=== PATIENT | female | born 1945 | race Caucasian/White ===

== ENCOUNTER → 2016-06-09 | Outpatient (REF) | payer MEDICARE, OTHER ==
[~2016-06-09] MED LIST: /FENT25PA TD; ACET65TA; ACET65TA OR; BONIVA; CALCCHW12; COUM10TA; DARV100T; DICLOFENAC PO; FIBER CAP PO; FLON0.05; GELATIN PO; GLUC850T OR; HYZAAR 100/25; MILKSUS OR; MUCINEX PO; MULTIVIT PO; NASAL SPRAY; OMEGA FISH OIL; PERC5TAB8; PERC5TAB8 OR; Pradaxa PO; RED YEAST RICE; SIMV40TA2 OR; SING10TA31 OR; ZEBE5TAB
== END ==
LOC: M LAB REF 16:50
PROVIDERS: ATTEND Physician Assistant Medical
DX: J02.9 Acute pharyngitis, unspecified (principal)

== ENCOUNTER → 2016-06-12 | Outpatient (REF) | payer MEDICARE, OTHER ==
[2016-06-12 13:50] LABS: ALBUMIN 3.6 GM/DL (3.2-5.2); ALBUMIN/GLOBULIN RATIO 1.2 (1.00-1.93); BILIRUBIN,TOTAL 0.7 MG/DL (0.2-1.0); CALCIUM LEVEL 8.8 MG/DL (8.8-10.2); CREATININE FOR GFR 1.34 MG/DL (0.55-1.02); GLOMERULAR FILTRATION RATE 41.4 (>39); POTASSIUM SERUM 3.9 MEQ/L (3.5-5.1); TOTAL PROTEIN 6.6 GM/DL (6.4-8.2)
== END ==
LOC: M LABDRAW1 11:43
PROVIDERS: ATTEND Family Medicine
DX: E11.65 Type 2 diabetes mellitus with hyperglycemia (principal)

== ENCOUNTER → 2016-10-01 | Outpatient (REF) | payer MEDICARE, OTHER ==
[2016-10-01 12:30] LABS: BASO % 0.5 % (0.0-1.0); EOS # 0.1 K/mm3 (0.0-0.50); EOS % 1.4 % (0.0-3.0); LARGE UNSTAINED CELL # 0.1 K/mm3 (0.0-0.4); LYMPH # 0.9 K/mm3 (1.5-4.5); LYMPH % 17.6 % (24.0-44.0); MEAN CORPUSCULAR HEMOGLOBIN 29.7 pg (27.0-33.0); MEAN CORPUSCULAR VOLUME 89.9 fl (80.0-96.0); MONO # 0.4 K/mm3 (0.0-0.8); MONO % 9.7 % (0.0-5.0); NEUTROPHILS # 3.1 K/mm3 (1.8-7.7); NEUTROPHILS % 68.8 % (36.0-66.0); PLATELET COUNT, AUTOMATED 179 k/mm3 (150-450); RED CELL DISTRIBUTION WIDTH 13.7 % (11.5-14.5); WHITE BLOOD COUNT 4.5 K/mm3 (4.0-10.0)
[2016-10-01 12:54] LABS: ALBUMIN 3.4 GM/DL (3.2-5.2); ALBUMIN/GLOBULIN RATIO 1.21 (1.00-1.93); BILIRUBIN,TOTAL 0.5 MG/DL (0.2-1.0); CALCIUM LEVEL 8.6 MG/DL (8.8-10.2); CREATININE FOR GFR 2.14 MG/DL (0.55-1.02); FREE T4 1.39 NG/DL (0.76-1.46); TOTAL PROTEIN 6.2 GM/DL (6.4-8.2)
== END ==
LOC: M LABDRAW1 11:24
PROVIDERS: ATTEND Family Medicine
DX: E11.65 Type 2 diabetes mellitus with hyperglycemia (principal); E03.9 Hypothyroidism, unspecified

== ENCOUNTER → 2016-10-09 | Outpatient (REF) | payer MEDICARE, OTHER ==
[2016-10-09 11:44] LABS: CALCIUM LEVEL 9.5 MG/DL (8.8-10.2); CREATININE FOR GFR 1.22 MG/DL (0.55-1.02); POTASSIUM SERUM 4.7 MEQ/L (3.5-5.1)
== END ==
LOC: M LABDRAW1 11:00
PROVIDERS: ATTEND Family Medicine
DX: R94.4 Abnormal results of kidney function studies (principal); E11.65 Type 2 diabetes mellitus with hyperglycemia

== ENCOUNTER → 2017-03-14 | Outpatient (REF) | payer MEDICARE, OTHER ==
[2017-03-14 12:36] LABS: ALBUMIN 3.8 GM/DL (3.2-5.2); ALBUMIN/GLOBULIN RATIO 1.52 (1.00-1.93); BILIRUBIN,TOTAL 0.9 MG/DL (0.2-1.0); CALCIUM LEVEL 9.6 MG/DL (8.8-10.2); CREATININE FOR GFR 1.27 MG/DL (0.55-1.02); GLOMERULAR FILTRATION RATE 43.9 (>39); POTASSIUM SERUM 3.9 MEQ/L (3.5-5.1); TOTAL PROTEIN 6.3 GM/DL (6.4-8.2)
== END ==
LOC: M LABDRAW1 10:52
PROVIDERS: ATTEND Family Medicine
DX: E11.65 Type 2 diabetes mellitus with hyperglycemia (principal)

== ENCOUNTER → 2017-06-14 | Outpatient (REF) | payer MEDICARE, OTHER ==
[2017-06-14 12:39] LABS: ANION GAP 6 MEQ/L (8-16); BLOOD UREA NITROGEN 31 MG/DL (7-18); CALCIUM LEVEL 9.5 MG/DL (8.8-10.2); CARBON DIOXIDE LEVEL 30 MEQ/L (21-32); CHLORIDE LEVEL 105 MEQ/L (98-107); CREATININE FOR GFR 1.09 MG/DL (0.55-1.30); GLOMERULAR FILTRATION RATE 52.4 (>39); GLUCOSE, FASTING 128 MG/DL (70-100); SODIUM LEVEL 141 MEQ/L (136-145)
[2017-06-14 12:45] LABS: ESTIMATED AVERAGE GLUCOSE 151 MG/DL (60-110); HEMOGLOBIN A1c 6.9 %
== END ==
LOC: M LABDRAW1 07:43
DX: E11.65 Type 2 diabetes mellitus with hyperglycemia (principal)
CPT/HCPCS: 83036

== ENCOUNTER → 2017-09-12 | Outpatient (REF) | payer MEDICARE, OTHER ==
[2017-09-12 13:05] LABS: BASO % 0.6 % (0.0-1.0); EOS # 0.1 10^3/uL (0.0-0.50); EOS % 2.3 % (0.0-3.0); HEMATOCRIT 40.5 % (36.0-47.0); HEMOGLOBIN 13.2 g/dl (12.0-15.5); IMMATURE GRANULOCYTE % 0.4 % (0-3.0); LYMPH # 0.9 10^3/uL (1.5-4.5); LYMPH % 17.3 % (24.0-44.0); MEAN CORPUSCULAR HEMOGLOBIN 29.7 pg (27.0-33.0); MEAN CORPUSCULAR HGB CONC 32.6 g/dl (32.0-36.5); MONO # 0.5 10^3/uL (0.0-0.8); MONO % 9.3 % (0.0-5.0); NEUTROPHILS # 3.7 10^3/uL (1.8-7.7); NEUTROPHILS % 70.1 % (36.0-66.0); PLATELET COUNT, AUTOMATED 228 10^3/uL (150-450); RED BLOOD COUNT 4.45 10^6/uL (4.00-5.40); RED CELL DISTRIBUTION WIDTH 13.1 % (11.5-14.5); WHITE BLOOD COUNT 5.3 10^3/uL (4.0-10.0)
[2017-09-12 13:16] LABS: ESTIMATED AVERAGE GLUCOSE 154 MG/DL (60-110)
[2017-09-12 13:31] LABS: ALBUMIN/GLOBULIN RATIO 1.48 (1.00-1.93); ALKALINE PHOSPHATASE 85 U/L (45-117); ALT/SGPT 21 U/L (12-78); ANION GAP 6 MEQ/L (8-16); AST/SGOT 21 U/L (7-37); BILIRUBIN,TOTAL 0.8 MG/DL (0.2-1.0); BLOOD UREA NITROGEN 26 MG/DL (7-18); CARBON DIOXIDE LEVEL 28 MEQ/L (21-32); CHLORIDE LEVEL 108 MEQ/L (98-107); CREATININE FOR GFR 1.05 MG/DL (0.55-1.30); GLOMERULAR FILTRATION RATE 54.5 (>39); GLUCOSE, FASTING 128 MG/DL (70-100); POTASSIUM SERUM 4.1 MEQ/L (3.5-5.1); SODIUM LEVEL 142 MEQ/L (136-145); TOTAL PROTEIN 6.7 GM/DL (6.4-8.2)
[2017-09-12 13:46] LABS: MALB URINE SIEMENS 12.6 MG/L; MAU/CREAT RATIO 9.6 MCG/MG (0.0-30.0)
== END ==
LOC: M LABDRAW1 11:40
DX: E11.9 Type 2 diabetes mellitus without complications (principal); E03.9 Hypothyroidism, unspecified
CPT/HCPCS: 84443

== ENCOUNTER 2017-11-13 09:32 | Day surgery (SDC) | payer MEDICARE, BC, OTHER ==
[~2017-11-13 09:32] MED LIST changes: -/FENT25PA TD; -ACET65TA; -ACET65TA OR; +ACETAMINOPHEN 325 MG TAB PO; -BONIVA; -CALCCHW12; -COUM10TA; -DARV100T; -DICLOFENAC PO; -FIBER CAP PO; -FLON0.05; -GELATIN PO; -GLUC850T OR; -HYZAAR 100/25; -MILKSUS OR; -MUCINEX PO; -MULTIVIT PO; -NASAL SPRAY; -OMEGA FISH OIL; -PERC5TAB8; -PERC5TAB8 OR; -Pradaxa PO; -RED YEAST RICE; -SIMV40TA2 OR; -SING10TA31 OR; -ZEBE5TAB
[2017-11-13] MEDS ORDERED: PHENYLEPHRINE 2.5% OPHTH SOL 2ML As Ordered ×2 (10:04)
[2017-11-13] MEDS ORDERED: CYCLOPENTOLATE 2% OPHTH SOLN 2ML BTL As Ordered ×2 (10:04)
[2017-11-13] MEDS ORDERED: OFLOXACIN 0.3 % (OCUFLOX) OPTH SOL 5ML As Ordered ×2 (10:04)
[2017-11-13] MEDS ORDERED: TROPICAMIDE 1% OPHTH SOLN 2ML As Ordered ×2 (10:04)
[2017-11-13] MEDS: TROPICAMIDE 1% OPHTH SOLN 2ML OS ×2 (10:24)
[2017-11-13] MEDS: OFLOXACIN 0.3 % (OCUFLOX) OPTH SOL 5ML OS ×2 (10:25)
[2017-11-13] MEDS: LIDOCAINE 3.5 % 1ML OPHTH TOPICAL GEL OU ×2 (10:25)
[2017-11-13] MEDS: PHENYLEPHRINE 2.5% OPHTH SOL 2ML OS ×2 (10:25)
[2017-11-13] MEDS: CYCLOPENTOLATE 2% OPHTH SOLN 2ML BTL OS ×2 (10:26)
[2017-11-13 10:29] LABS: BEDSIDE GLUCOSE 130 MG/DL (83-110)
[2017-11-13] MEDS ORDERED: MIDAZOLAM INJ 2 MG/2 ML VIAL (J2250) As Ordered ×2 (11:34)
[2017-11-13] MEDS ORDERED: fentaNYL 100 MCG/2 ML INJECTION (J3010) As Ordered ×2 (11:34)
[2017-11-13] MEDS: HEALON DUET (HEALON 10MG/ML 0.55ML & HEALON ENDOCOAT 30MG/ML 0.85ML) As Ordered ×2 (11:38)
[2017-11-13] MEDS: LIDOCAINE 1% SDV 5 ML VIAL As Ordered ×2 (11:38)
[2017-11-13] MEDS: PHENYLEPHRINE HCL 10 % OPHTH. SOL 5ML OS ×2 (11:38)
[2017-11-13] MEDS: MOXIFLOXACIN IN BSS 0.25MG/0.25ML INTRACAMERAL INJ (OR EYE ONLY)(J2280) As Ordered (11:38)
[2017-11-13] MEDS: BSS with VANC/TOB/EPI for EYE CASES IR ×2 (11:38)
[2017-11-13] MEDS: POVIDONE-IODINE 5% OPHTH PREP SOL 30ML As Ordered ×2 (11:38)
[2017-11-13] MEDS: TRIAMCINOLONE PRES FR 40 MG/ML 1ML(TRIESENCE)(OR EYE ONLY)(J3300 PER 1MG) As Ordered ×2 (11:38)
[2017-11-13] MEDS: AcetaZOLAMIDE 500 MG ER CAP PO ×2 (12:10)
[2017-11-13] MEDS ORDERED: TRIMETHOBENZAMIDE 300 MG CAP PO ×2 (12:15)
== END 2017-11-13 12:23 | disposition home or self-care (01) ==
LOC: M SDC 09:32
DX: H25.22 Age-related cataract, morgagnian type, left eye (principal); I48.91 Unspecified atrial fibrillation; I10 Essential (primary) hypertension; E78.00 Pure hypercholesterolemia, unspecified; E11.9 Type 2 diabetes mellitus without complications; M12.9 Arthropathy, unspecified; J30.9 Allergic rhinitis, unspecified; Z79.899 Other long term (current) drug therapy; Z79.84 Long term (current) use of oral hypoglycemic drugs; Z90.710 Acquired absence of both cervix and uterus; Z96.653 Presence of artificial knee joint, bilateral
CPT/HCPCS: 66984

== ENCOUNTER → 2017-12-16 | Outpatient (REF) | payer MEDICARE, BC, OTHER ==
[2017-12-16 12:35] LABS: ESTIMATED AVERAGE GLUCOSE 148 MG/DL (60-110); HEMOGLOBIN A1c 6.8 %
[2017-12-16 12:38] LABS: ALBUMIN 4.1 GM/DL (3.2-5.2); ALBUMIN/GLOBULIN RATIO 1.37 (1.00-1.93); ALKALINE PHOSPHATASE 67 U/L (45-117); ALT/SGPT 23 U/L (12-78); ANION GAP 7 MEQ/L (8-16); AST/SGOT 14 U/L (7-37); BLOOD UREA NITROGEN 22 MG/DL (7-18); CALCIUM LEVEL 9.5 MG/DL (8.8-10.2); CARBON DIOXIDE LEVEL 31 MEQ/L (21-32); CHLORIDE LEVEL 105 MEQ/L (98-107); CHOLESTEROL LEVEL 143 MG/DL (<200); CREATININE FOR GFR 1.17 MG/DL (0.55-1.30); GLOMERULAR FILTRATION RATE 48.1 (>39); GLUCOSE, FASTING 114 MG/DL (70-100); HDL CHOLESTEROL 52 MG/DL (>40); LDL CHOLESTEROL 62.2 MG/DL (<100); NON-HDL-C 91 MG/DL; SODIUM LEVEL 143 MEQ/L (136-145); TOTAL PROTEIN 7.1 GM/DL (6.4-8.2); TRIGLYCERIDES LEVEL 144 MG/DL (<150)
[2017-12-16 12:41] LABS: POTASSIUM SERUM 5.2 MEQ/L (3.5-5.1)
== END ==
LOC: M LABDRAW1 08:02
DX: E11.69 Type 2 diabetes mellitus with other specified complication (principal)
CPT/HCPCS: 80053

== ENCOUNTER 2018-03-12 11:21 | Day surgery (SDC) | payer MEDICARE, BC, OTHER ==
[~2018-03-12 11:21] MED LIST changes: +PHENYLEPHRINE HCL 10 % OPHTH. SOL 5ML OD
[2018-03-12] MEDS: PHENYLEPHRINE 2.5% OPHTH SOL 2ML OD (12:32)
[2018-03-12] MEDS: TROPICAMIDE 1% OPHTH SOLN 2ML OD (12:32)
[2018-03-12] MEDS: OFLOXACIN 0.3 % (OCUFLOX) OPTH SOL 5ML OD (12:32)
[2018-03-12] MEDS: CYCLOPENTOLATE 2% OPHTH SOLN 2ML BTL OD (12:32)
[2018-03-12] MEDS: LIDOCAINE 3.5 % 1ML OPHTH TOPICAL GEL OU (12:32)
[2018-03-12] MEDS: BISOPROLOL FUMARATE 5 MG TAB PO (13:00)
[2018-03-12] MEDS ORDERED: BISOPROLOL FUMARATE 5 MG TAB As Ordered (13:06)
[2018-03-12] MEDS ORDERED: MIDAZOLAM INJ 2 MG/2 ML VIAL (J2250) As Ordered (13:52)
[2018-03-12] MEDS ORDERED: fentaNYL 100 MCG/2 ML INJECTION (J3010) As Ordered (13:52)
[2018-03-12] MEDS: BSS with VANC/TOB/EPI for EYE CASES IR (14:23)
[2018-03-12] MEDS: POVIDONE-IODINE 5% OPHTH PREP SOL 30ML As Ordered (14:23)
[2018-03-12] MEDS: HEALON DUET PRO(HEALON 10MG/ML 0.55ML & HEALON ENDOCOAT 30MG/ML 0.85ML) As Ordered (14:24)
[2018-03-12] MEDS: MOXIFLOXACIN IN BSS 0.25MG/0.25ML INTRACAMERAL INJ (OR EYE ONLY)(J2280) As Ordered (14:24)
[2018-03-12] MEDS: LIDOCAINE 1% SDV 5 ML VIAL As Ordered (14:24)
[2018-03-12] MEDS: TRIAMCINOLONE PRES FR 40 MG/ML 1ML(TRIESENCE)(OR EYE ONLY)(J3300 PER 1MG) As Ordered (14:24)
[2018-03-12] MEDS ORDERED: TRIMETHOBENZAMIDE 300 MG CAP PO (14:45)
[2018-03-12] MEDS: AcetaZOLAMIDE 500 MG ER CAP PO (15:05)
[2018-03-13 11:03] LABS: BEDSIDE GLUCOSE 117 MG/DL (83-110)
== END 2018-03-12 15:13 | disposition home or self-care (01) ==
LOC: M SDC 11:21
DX: H25.9 Unspecified age-related cataract (principal); I48.91 Unspecified atrial fibrillation; E11.9 Type 2 diabetes mellitus without complications; E03.9 Hypothyroidism, unspecified; I10 Essential (primary) hypertension; E78.5 Hyperlipidemia, unspecified; Z79.84 Long term (current) use of oral hypoglycemic drugs; Z79.899 Other long term (current) drug therapy
CPT/HCPCS: 66984

== ENCOUNTER → 2018-06-20 | Outpatient (REF) | payer MEDICARE, OTHER ==
[~2018-06-20] MED LIST changes: +/FENT25PA TD; +ACET65TA; +ACET65TA OR; -ACETAMINOPHEN 325 MG TAB PO; +BISO5TAB5 PO; +BONIVA; +CALC600T57 PO; +CALCCHW12 PO; +COUM10TA; +CRAN450T4 PO; +DARV100T; +DICL75TA PO; +DICLOFENAC PO; +FIBER CAP PO; +FLON0.05; +GELATIN PO; +GLUC850T OR; +HYZAAR 100/25; +LOSA100T5 PO; +LOSARTAN/HCT PO; +METF500T4 PO; +MILKSUS OR; +MUCINEX PO; +MULTIVIT PO; +NASAL SPRAY; +OCUVTAB PO; +OMEG500C2 PO; +OMEGA FISH OIL; +PERC5TAB8; +PERC5TAB8 OR; -PHENYLEPHRINE HCL 10 % OPHTH. SOL 5ML OD; +PRAD150C PO; +Pradaxa PO; +RED YEAST RICE; +SIMV20TA2 PO; +SIMV40TA2 OR; +SING10TA31 OR; +ZEBE5TAB
[2018-06-20 13:46] LABS: BILIRUBIN,TOTAL 0.7 MG/DL (0.2-1.0); CALCIUM LEVEL 9.4 MG/DL (8.8-10.2); CREATININE FOR GFR 1.2 MG/DL (0.55-1.30); GLOMERULAR FILTRATION RATE 46.8 (>39)
[2018-06-20 13:47] LABS: ALBUMIN 4.1 GM/DL (3.2-5.2); CHOLESTEROL RISK RATIO 3.404 (<5); TOTAL PROTEIN 6.7 GM/DL (6.4-8.2)
[2018-06-20 13:54] LABS: BASO % 0.6 % (0.0-1.0); EOS # 0.1 10^3/uL (0.0-0.50); EOS % 1.7 % (0.0-3.0); HEMATOCRIT 41.4 % (36.0-47.0); HEMOGLOBIN 13.2 g/dl (12.0-15.5); LYMPH # 1.1 10^3/uL (1.5-4.5); LYMPH % 22.1 % (24.0-44.0); MEAN CORPUSCULAR HEMOGLOBIN 29.6 pg (27.0-33.0); MEAN CORPUSCULAR HGB CONC 31.9 g/dl (32.0-36.5); MEAN CORPUSCULAR VOLUME 92.8 fl (80.0-96.0); MONO # 0.6 10^3/uL (0.0-0.8); MONO % 11.7 % (0.0-5.0); NEUTROPHILS # 3.1 10^3/uL (1.8-7.7); NEUTROPHILS % 63.7 % (36.0-66.0); PLATELET COUNT, AUTOMATED 268 10^3/uL (150-450); RED BLOOD COUNT 4.46 10^6/uL (4.00-5.40); WHITE BLOOD COUNT 4.8 10^3/uL (4.0-10.0)
[2018-06-20 14:22] LABS: HEMOGLOBIN A1c 7.5 %
== END ==
LOC: M LABDRAW1 12:41
PROVIDERS: ATTEND Family Medicine
DX: E11.69 Type 2 diabetes mellitus with other specified complication (principal)

== ENCOUNTER → 2018-09-24 | Outpatient (REF) | payer MEDICARE, OTHER ==
[~2018-09-24] MED LIST changes: -/FENT25PA TD; +FENT1DIS14 TD; -PRAD150C PO; +PRAD150C6 PO
[2018-09-24 12:17] LABS: ALBUMIN 3.7 GM/DL (3.2-5.2); BILIRUBIN,TOTAL 0.5 MG/DL (0.2-1.0); CALCIUM LEVEL 9.1 MG/DL (8.8-10.2); CREATININE FOR GFR 1.12 MG/DL (0.55-1.30); GLOMERULAR FILTRATION RATE 50.5 (>39); POTASSIUM SERUM 4.4 MEQ/L (3.5-5.1); TOTAL PROTEIN 6.6 GM/DL (6.4-8.2)
[2018-09-24 12:50] LABS: HEMOGLOBIN A1c 6.2 %
== END ==
LOC: M LABDRAW1 08:21
PROVIDERS: ATTEND Family Medicine
DX: E11.40 Type 2 diabetes mellitus with diabetic neuropathy, unspecified (principal)

== ENCOUNTER → 2019-01-01 | Outpatient (REF) | payer MEDICARE, OTHER ==
[~2019-01-01] MED LIST changes: -BISO5TAB5 PO; +BISO5TAB9 PO; +METF-791 PO; -METF500T4 PO
[2019-01-01 13:18] LABS: BASO % 0.6 % (0.0-1.0); EOS # 0.1 10^3/uL (0.0-0.5); HEMATOCRIT 42.1 % (36.0-47.0); HEMOGLOBIN 13.5 g/dl (12.0-15.5); LYMPH # 1.2 10^3/uL (1.5-5.0); LYMPH % 24.7 % (24.0-44.0); MEAN CORPUSCULAR HEMOGLOBIN 29.3 pg (27.0-33.0); MEAN CORPUSCULAR HGB CONC 32.1 g/dl (32.0-36.5); MEAN CORPUSCULAR VOLUME 91.5 fl (80.0-96.0); MONO # 0.5 10^3/uL (0.0-0.8); MONO % 10.3 % (0.0-5.0); NEUTROPHILS # 3.1 10^3/uL (1.5-8.5); NEUTROPHILS % 62.2 % (36.0-66.0); PLATELET COUNT, AUTOMATED 267 10^3/uL (150-450)
[2019-01-01 13:59] LABS: MALB URINE SIEMENS 41.8 MG/L
[2019-01-01 14:00] LABS: ALBUMIN 3.8 GM/DL (3.2-5.2); CALCIUM LEVEL 10.1 MG/DL (8.8-10.2); CHOLESTEROL RISK RATIO 3.131 (<5); CREATININE FOR GFR 1.6 MG/DL (0.55-1.30); GLOMERULAR FILTRATION RATE 33.5 (>39); POTASSIUM SERUM 4.6 MEQ/L (3.5-5.1); TOTAL PROTEIN 6.6 GM/DL (6.4-8.2)
[2019-01-01 14:11] LABS: HEMOGLOBIN A1c 6.5 %
== END ==
LOC: M LABDRAW1 12:07
PROVIDERS: ATTEND Family Medicine
DX: E11.40 Type 2 diabetes mellitus with diabetic neuropathy, unspecified (principal)

== ENCOUNTER → 2019-01-08 | Outpatient (REF) | payer MEDICARE, OTHER ==
[2019-01-08 12:55] LABS: CALCIUM LEVEL 9.9 MG/DL (8.8-10.2); CREATININE FOR GFR 1.22 MG/DL (0.55-1.30); GLOMERULAR FILTRATION RATE 45.7 (>39)
== END ==
LOC: M LABDRAW1 08:03
PROVIDERS: ATTEND Family Medicine
DX: N18.3 Chronic kidney disease, stage 3 (moderate) (principal)

== ENCOUNTER → 2019-04-04 | Outpatient (CLI) | payer MEDICARE, OTHER ==
[~2019-04-04] MED LIST changes: -SIMV20TA2 PO; +SIMV20TA22 PO
--- NOTE | 2019-04-05 09:36 | REP ---
RIGHT CLAVICLE: 04/04/2019. COMPARISON: Right shoulder, 04/04/2019. CLINICAL HISTORY: Trauma. Pain. FINDINGS: Two views show the AC joint with small spurs inferiorly and no widening of the joint space or elevation of the clavicle. Clavicle without fracture or focal lesion. There are degenerative changes of the glenohumeral joint and spurring at the inferior margin of the acromion. Sternotomy wires are noted. No visible fracture. IMPRESSION: 1. AC and glenohumeral joint arthritis without visible clavicular fracture or AC joint separation. Electronically Signed by Sourav Castro MD 04/05/2019 10:19 A
--- NOTE | 2019-04-05 09:38 | REP ---
RIGHT SHOULDER, COMPLETE: 04/04/2019. COMPARISON: Right clavicle today, MRI shoulder 12/31/2012. CLINICAL HISTORY: Trauma. Shoulder pain. FINDINGS: AC joint shows small spurs without widening of the joint space or elevation of the clavicle. There is larger spur peripherally from the acromion. Glenohumeral joint shows degenerative changes as well. There is no subluxation or dislocation of the humeral head. No abnormal soft-tissue calcification. Visualized clavicles, scapula, ribs and humeral head without fracture. IMPRESSION: 1. The AC and glenohumeral joint arthritis, the peripheral acromial spur may be the most significant finding contributing to impingement symptoms. No acute fracture, subluxation, or other acute finding. Electronically Signed by Sourav Castro MD 04/05/2019 10:20 A
--- NOTE | 2019-04-05 09:39 | REP ---
RIGHT ELBOW COMPLETE: 04/04/2019. CLINICAL HISTORY: Pain. FINDINGS: Four views are provided. There is spurring at the coronoid process of the ulna, metaphyseal margin of the radial head, medial and lateral epicondyles, consistent with some chronic epicondylitis at tendinous insertions. No visible or displaced fracture. No avulsion of the triceps tendon. No joint effusion. IMPRESSION: 1. Some osteoarthritic changes about the elbow with medial and lateral chronic epicondylitis but no joint effusion. No fracture. Electronically Signed by Sourav Castro MD 04/05/2019 10:20 A
== END ==
LOC: M WUC 13:36
PROVIDERS: ATTEND Physician Assistant
DX: S40.011A Contusion of right shoulder, initial encounter (principal); S50.01XA Contusion of right elbow, initial encounter; X58.XXXA Exposure to other specified factors, initial encounter; Y92.89 Other specified places as the place of occurrence of the external cause; Y93.9 Activity, unspecified; Y99.9 Unspecified external cause status

== ENCOUNTER → 2019-06-10 | Outpatient (REF) | payer MEDICARE, BC, OTHER ==
[~2019-06-10] MED LIST changes: +BISO5TAB14 PO; -BISO5TAB9 PO
[2019-06-10 14:59] LABS: BASO % 0.6 % (0.0-1.0); EOS # 0.1 10^3/uL (0.0-0.5); EOS % 1.7 % (0.0-3.0); HEMATOCRIT 41.6 % (36.0-47.0); HEMOGLOBIN 12.8 g/dl (12.0-15.5); LYMPH # 1.2 10^3/uL (1.5-5.0); LYMPH % 21.8 % (24.0-44.0); MEAN CORPUSCULAR HEMOGLOBIN 29.2 pg (27.0-33.0); MEAN CORPUSCULAR HGB CONC 30.8 g/dl (32.0-36.5); MONO # 0.8 10^3/uL (0.0-0.8); NEUTROPHILS # 3.3 10^3/uL (1.5-8.5); NEUTROPHILS % 61.5 % (36.0-66.0); PLATELET COUNT, AUTOMATED 248 10^3/uL (150-450); RED BLOOD COUNT 4.38 10^6/uL (4.00-5.40); WHITE BLOOD COUNT 5.4 10^3/uL (4.0-10.0)
[2019-06-10 15:28] LABS: ALBUMIN 4.2 GM/DL (3.2-5.2); BILIRUBIN,TOTAL 0.8 MG/DL (0.2-1.0); CALCIUM LEVEL 9.9 MG/DL (8.8-10.2); CHOLESTEROL RISK RATIO 2.978 (<5); CREATININE FOR GFR 1.18 MG/DL (0.55-1.30); GLOMERULAR FILTRATION RATE 47.5 (>39); POTASSIUM SERUM 4.1 MEQ/L (3.5-5.1); TOTAL PROTEIN 6.8 GM/DL (6.4-8.2)
[2019-06-10 15:33] LABS: HEMOGLOBIN A1c 6.6 %
[2019-06-10 15:39] LABS: MALB URINE SIEMENS 10.7 MG/L; MAU/CREAT RATIO 5.8 MCG/MG (0.0-30.0)
== END ==
LOC: M LABDRAW1 07:37
PROVIDERS: ATTEND Family Medicine
DX: E11.40 Type 2 diabetes mellitus with diabetic neuropathy, unspecified (principal)

== ENCOUNTER → 2019-07-23 | Outpatient (CLI) | payer MEDICARE, BC, OTHER ==
--- NOTE | 2019-07-23 15:47 | REP ---
Left rib series: Five views including PA chest. History: Contusion. Findings: PA chest radiograph shows no evidence of pneumothorax or hydrothorax. Lung dia are clear. The thoracic aorta is somewhat tortuous. Heart is not felt to be enlarged. Prior median sternotomy wires are noted. Multiple views of the left rib cage show no bony destructive lesion. There is mild diffuse osteopenia. The costal cartilages are heavily calcified and as a result, a costal cartilage fracture is visible involving the left anterior 7th rib costal margin. No other costal cartilage fracture is apparent. There is osteoarthritis in the glenohumeral and acromioclavicular joints on the left side. Some mild degenerative changes are seen in the thoracic and lumbar spine. Impression: There is a nondisplaced fracture in the densely calcified anterior costal cartilage associated with the left seventh rib. No other rib fracture is seen. There is diffuse osteopenia. Otherwise no acute disease. Electronically Signed by Errol Ruiz MD 07/23/2019 04:02 P
== END ==
LOC: M ADAMS 14:02
PROVIDERS: ATTEND Physician Assistant
DX: S22.32XA Fracture of one rib, left side, initial encounter for closed fracture (principal); X58.XXXA Exposure to other specified factors, initial encounter; Y92.89 Other specified places as the place of occurrence of the external cause

== ENCOUNTER → 2019-12-04 | Outpatient (CLI) | payer MEDICARE, BC, OTHER ==
[~2019-12-04] MED LIST changes: +AMAR1TAB PO; +CIDA500T2 PO; +CVS500CA5 PO; +ELIQ5TAB PO; +GLUCTAB6 PO; +KRIL1CAP6 PO; +LEVO30TA PO; -METF-791 PO; +METF-838 PO; +PERC5TAB12 PO; +TRAV04OPD OU
--- NOTE | 2020-01-20 09:53 | REP ---
CT OF THE RIGHT SHOULDER: HISTORY: Arthritis. TECHNIQUE: CT right shoulder performed in the axial plane without the use of intravenous contrast. Sagittal and coronal oblique reconstruction images are performed. FINDINGS: There is no acute fracture or dislocation. There is mild joint space narrowing, subchondral sclerosis and spurring at the glenohumeral joint. There is moderate narrowing and mild spurring at the acromioclavicular joint. There is type 2 acromion. The humeral head is high riding. This suggests a tear of the supraspinatus tendon. Subcentimeter calcification is seen along the anterior margin of the subscapularis tendon. This is near the inferior glenohumeral joint. Incidental note is made of multiple sternal wires and mediastinal clips. There are calcified lymph nodes in the mediastinum and right hilum. There are diffuse degenerative changes of the thoracic spine. MTDD
== END ==
LOC: M RAD 14:15
PROVIDERS: ATTEND Orthopaedic Surgery
DX: M19.011 Primary osteoarthritis, right shoulder (principal)

== ENCOUNTER → 2020-01-06 | Outpatient (CLI) | payer MEDICARE, BC, OTHER ==
[2020-01-06 12:36] LABS: HEMATOCRIT 42.4 % (36.0-47.0); HEMOGLOBIN 13.7 g/dl (12.0-15.5); MEAN CORPUSCULAR HEMOGLOBIN 29.7 pg (27.0-33.0); MEAN CORPUSCULAR HGB CONC 32.3 g/dl (32.0-36.5); MEAN CORPUSCULAR VOLUME 91.8 fl (80.0-96.0); PLATELET COUNT, AUTOMATED 263 10^3/uL (150-450); RED BLOOD COUNT 4.62 10^6/uL (4.00-5.40); WHITE BLOOD COUNT 6.3 10^3/uL (4.0-10.0)
[2020-01-06 12:47] LABS: INR 1.14; PROTHROMBIN TIME 14.9 SECONDS (11.8-14.0)
[2020-01-06 13:01] LABS: ALBUMIN 4.1 GM/DL (3.2-5.2); BILIRUBIN,TOTAL 0.7 MG/DL (0.2-1.0); CREATININE FOR GFR 1.29 MG/DL (0.55-1.30); GLOMERULAR FILTRATION RATE 42.8 (>39); POTASSIUM SERUM 4.4 MEQ/L (3.5-5.1)
[2020-01-06 13:02] LABS: ERYTHROCYTE SEDIMENTATION RATE 5 mm/hr (0-30)
--- NOTE | 2020-01-16 18:45 | ECGEPIP ---
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 SLOW R PROGRESSION-BODY HABITUS VS COPD NONSPECIFIC ST/T ABN'S CLINICAL CORRELATION ADVISED SEE SCANNED DOWNTIME REPORT
--- NOTE | 2020-01-18 16:24 | REP ---
CHEST X-RAY CLINICAL: Preoperative assessment. TECHNIQUE: PA and lateral. COMPARISON: 10/29/2010. FINDINGS: Prior sternotomy. Mediastinum and cardiac silhouette are within normal limits and stable. Lung dia are clear. No focal consolidation, effusion, or pneumothorax. Skeletal structures are intact. IMPRESSION: No acute cardiopulmonary process or focal consolidation. MTDD
== END ==
LOC: M LAB 10:54
PROVIDERS: ATTEND Orthopaedic Surgery Sports Medicine
DX: Z01.818 Encounter for other preprocedural examination (principal); M13.812 Other specified arthritis, left shoulder; E11.9 Type 2 diabetes mellitus without complications; I48.91 Unspecified atrial fibrillation

== ENCOUNTER → 2020-01-14 | Outpatient (CLI) | payer MEDICARE, BC, OTHER | LOC: M LABSMTC 10:30 | PROVIDERS: ATTEND Anesthesiology | DX: Z01.812 Encounter for preprocedural laboratory examination (principal); Z20.828 Contact with and (suspected) exposure to other viral communicable diseases | CPT/HCPCS: C9803; U0003 ==

== ENCOUNTER 2020-01-19 08:16 | Inpatient (IN) | payer MEDICARE, BC, OTHER ==
--- NOTE | 2020-01-18 15:11 | HPE ---
DATE OF ANTICIPATED ADMISSION: 01/19/2020 CHIEF COMPLAINT: Right shoulder arthritis. HISTORY OF PRESENT ILLNESS: Kimmy is a pleasant 74-year-old female with progressively worsening right shoulder pain and stiffness. She has failed to improve with conservative treatment. She is elected for surgery for her continued symptoms. She has pain with her activities of daily living. X-rays of her shoulder are noted for advanced osteoarthritis of the right shoulder. She is considered for a reverse total shoulder arthroplasty by Dr. Geremias Garcia. Medical optimization was performed by Dr. Sharlene Ferrari. ALLERGIES: No known drug allergies. CURRENT MEDICATIONS: Synthroid 25 mcg a day, losartan/HCTZ 100/25 mg once a day, bisoprolol 5 mg once day, metformin HCL ER 500 mg four per day, glimepiride 1 mg one per day, Eliquis 5 mg one in the morning and one in the afternoon, diclofenac sodium 75 mg three per week, simvastatin 20 mg once a day, amlodipine 3% cream in cold weather. Supplements: Calcium with vitamin D3 two per day, cranberry 500 mg three per week, glucosamine chondroitin one in the morning, one in the afternoon and stool softener, docusate sodium 100 mg in the afternoon. PAST MEDICAL HISTORY: Includes diabetes, hypertension, hyperlipidemia and atrial fibrillation. PAST SURGICAL HISTORY: Includes tonsillectomy, hysterectomy, bilateral knee replacements and procedure on her thymus gland. SOCIAL HISTORY: The patient is retired, does not smoke, occasionally drinks alcohol. FAMILY HISTORY: Noncontributory. REVIEW OF SYSTEMS: This patient denies chest pain, heart palpitations, cough, wheezing, difficulty breathing and shortness of breath. She denies abdominal pain, nausea, vomiting, diarrhea or constipation. She denies recent upper respiratory infection or urinary tract infection symptoms. She does complain of persistent right shoulder pain. PHYSICAL EXAMINATION: General: She is well-developed, well-nourished in no acute distress, alert, female patient, ambulates without the use of assistive devices. Vital signs: She is 55, weighs 160.8 pounds. Temperature 96.7, blood pressure 122/88, respirations are 13, pulse 52. Neck was supple without adenopathy or jugular venous distention. Lungs are clear to auscultation without rales or wheeze throughout. Heart irregular rate and rhythm. Abdomen: Bowel sounds are present. Extremities: Inspection of shoulder revealed intact skin. She had decreased range of motion due to pain and stiffness. The limbs are neurovascularly intact. LABORATORY DATA: Electrocardiogram (EKG) showed atrial fibrillation at 60 beats per minute. I do not have her actual lab results, but her preop clearance appointment, Dr. Ferrari comments that her labs are all within normal limits and her chest x-ray showed no acute disease. IMPRESSION: Symptomatic osteoarthritis of the shoulder. PLAN: She has consented for a right reverse total shoulder arthroplasty by Dr. Geremias MATIAS
[2020-01-19] VITALS (8 sets, daily range): BP systolic 112–145; BP diastolic 74–92; O2SAT 98
[~2020-01-19] VITALS: Ht 170.2 cm; Wt 74.8 kg
[~2020-01-19 08:16] MED LIST changes: +ACETAMINOPHEN 500 MG TAB PO ONE; +CelecoXIB 400 MG CAP PO ONE; -GLUCTAB6 PO; +LIDOCAINE 1% MDV 20ML VIAL SQ PRN; +LR 1,000 ML IV ONE; -PERC5TAB12 PO; +PERCOCET 5MG/325MG TAB PO ONE; -TRAV04OPD OU; +ceFAZolin SOD 2 GM in IV 1 EA IV ONE
[2020-01-19] MEDS ORDERED: PERCOCET 5MG/325MG TAB As Ordered ONE (08:47)
[2020-01-19] MEDS ORDERED: ceFAZolin 2 GM/D5W 50 ML IV BAG (J0690 PER 500MG) As Ordered ONE (08:47)
[2020-01-19] MEDS ORDERED: CelecoXIB 400 MG CAP As Ordered ONE (08:48)
[2020-01-19] MEDS ORDERED: ACETAMINOPHEN 500 MG TAB As Ordered ONE (08:48)
[2020-01-19] MEDS ORDERED: EPINEPHrine INJ 1 MG/ML 1ML AMP As Ordered ONE (09:34)
[2020-01-19] MEDS ORDERED: BUPIVACAINE HCL 0.25% 10ML VIAL As Ordered ONE (09:34)
[2020-01-19] MEDS ORDERED: BUPIVACAINE LIPOSOME/PF 1.3% 20ML VIAL (13.3MG/ML)(EXPAREL)(C9290 PER1MG) As Ordered ONE (09:34)
[2020-01-19] MEDS ORDERED: ceFAZolin 1GM VIAL (J0690 PER 500MG) As Ordered ONE (09:34)
[2020-01-19] MEDS ORDERED: TRANEXAMIC ACID 100 MG/ML 10ML VIAL As Ordered ONE (09:34)
[2020-01-19] MEDS ORDERED: ePHEDrine SULFATE 25 MG/5 ML(5MG/ML) SYRINGE As Ordered ONE ×2 (10:24→10:25)
[2020-01-19] MEDS ORDERED: METOCLOPRAMIDE INJ 10MG/2ML VIAL (J2765 PER 1) As Ordered ONE (10:24)
[2020-01-19] MEDS ORDERED: propofoL 200 MG/20 ML VIAL As Ordered ONE (10:24)
[2020-01-19] MEDS ORDERED: LIDOCAINE 2% 100MG/5ML SDV (FOR ANES.) As Ordered ONE (10:24)
[2020-01-19] MEDS ORDERED: SUGAMMADEX SODIUM 500 MG/5 ML VIAL (BRIDION) As Ordered ONE (10:24)
[2020-01-19] MEDS ORDERED: ROCURONIUM BROMIDE 50 MG/5 ML VIAL As Ordered ONE ×2 (10:24→10:25)
[2020-01-19] MEDS ORDERED: fentaNYL 100 MCG/2 ML INJECTION (J3010) As Ordered ONE ×4 (10:24→12:26)
[2020-01-19] MEDS ORDERED: ONDANSETRON 4MG/2ML VIAL As Ordered ONE (10:24)
[2020-01-19] MEDS ORDERED: dexameTHASONE 4 MG/ML 1ML VIAL (J1100 PER 1MG) As Ordered ONE (10:24)
[2020-01-19] MEDS ORDERED: MIDAZOLAM INJ 2MG/2ML VIAL (J2250 PER 1MG) As Ordered ONE ×2 (10:24→12:26)
[2020-01-19] MEDS ORDERED: ACETAMINOPHEN 1000MG 100ML IV BTL (OFIRMEV) (J0131 PER 10MG) As Ordered ONE (10:47)
[2020-01-19] MEDS: MIDAZOLAM INJ 2MG/2ML VIAL (J2250 PER 1MG) IV SCH ×2 (12:29→12:42)
[2020-01-19] MEDS ORDERED: fentaNYL 100 MCG/2 ML INJECTION (J3010) IV PRN (12:45)
[2020-01-19] MEDS ORDERED: HYDROMORPHONE HCL 0.5 MG/ 0.5 ML SYRINGE (J1170 PER 1) IV PRN (12:45)
[2020-01-19] MEDS ORDERED: LR 1,000 ML IV SCH ×2 (12:45→13:45)
[2020-01-19] MEDS ORDERED: oxyCODONE 5MG TAB PO PRN (12:45)
[2020-01-19] MEDS ORDERED: ONDANSETRON 4MG/2ML VIAL IV PRN ×2 (12:45→13:45)
[2020-01-19] MEDS ORDERED: ACETAMINOPHEN TAB 650MG DOSE (2X325MG) PO PRN (13:45)
[2020-01-19] MEDS ORDERED: MORPHINE 2 MG/ML 1ML VIAL (J2270) IV PRN (13:45)
[2020-01-19] MEDS ORDERED: PERCOCET 5MG/325MG TAB PO PRN (13:45)
[2020-01-19] MEDS ORDERED: TRAV04OPD OU (15:01)
[2020-01-19] MEDS ORDERED: GLUCTAB6 PO (15:01)
[2020-01-19] MEDS: ceFAZolin SOD 2 GM in IV 1 EA IV SCH (18:11)
[2020-01-20 02:00] VITALS: BP 116/76
[2020-01-20] MEDS: ceFAZolin SOD 2 GM in IV 1 EA IV SCH (03:13)
[2020-01-20 06:00] VITALS: BP 129/61
[2020-01-20] MEDS ORDERED: PERC5TAB12 PO (06:21)
[2020-01-20 06:35] LABS: HEMATOCRIT 31.5 % (36.0-47.0); HEMOGLOBIN 10.6 g/dl (12.0-15.5); MEAN CORPUSCULAR HEMOGLOBIN 29.9 pg (27.0-33.0); MEAN CORPUSCULAR HGB CONC 33.7 g/dl (32.0-36.5); PLATELET COUNT, AUTOMATED 204 10^3/uL (150-450); RED BLOOD COUNT 3.54 10^6/uL (4.00-5.40); WHITE BLOOD COUNT 9.7 10^3/uL (4.0-10.0)
[2020-01-20 07:16] LABS: CALCIUM LEVEL 8.8 MG/DL (8.8-10.2); CREATININE FOR GFR 1.3 MG/DL (0.55-1.30); GLOMERULAR FILTRATION RATE 42.4 (>39); POTASSIUM SERUM 4.1 MEQ/L (3.5-5.1)
--- NOTE | 2020-02-01 09:16 | RO ---
DATE OF OPERATION: 01/19/2020 PREOPERATIVE DIAGNOSIS: Right shoulder osteoarthritis with rotator cuff tear. POSTOPERATIVE DIAGNOSIS: Right shoulder osteoarthritis with rotator cuff tear. PLANNED PROCEDURE: Right shoulder reverse total shoulder arthroplasty. PROCEDURE: Right shoulder reverse total shoulder arthroplasty. SURGEON: Geremias Garcia M.D. THERMODYNAMIC PHYSICIST: and Dr. Adam Aldridge. TYPE OF ANESTHETIC: General anesthetic plus preoperative block. OPERATIVE PREAMBLE: This is a 74-year-old female with pain and stiffness of her shoulder. Radiographs, CT, and MRI were consistent with rotator cuff tear with osteoarthritis and severe humeral head migration. I saw her in preoperative holding and marked her right upper extremity and reiterated the preoperative risks and proceeded with surgery. OPERATIVE REPORT: Patient was brought to the operating theater. She was administered a preoperative block. They placed her on the beach chair positioner. General anesthesia was induced. Two grams of IV Ancef and 2 grams of IV tranexamic acid was administered. Patient's upper extremity was prepped and draped in the usual sterile fashion. All bony prominences were padded. SCDs were used on the down legs. Face mask was used. Over three minutes to prep, position, and drying time was employed prior to draping. Patient was set up at approximately a 50 degree angle. Preoperative time out was performed to confirm the site, the patient, and the surgery. I began by making a deltopectoral incision. Dissection down through skin and subcutaneous tissue achieved with meticulous hemostasis. protecting the cephalic vein throughout the case and retracting this laterally. Developed the interval between pectoralis and deltoid. I released a small amount of upper border of pectoralis major. I identified the conjoined tendon and incised it laterally along the head and retracted it medially with pocket shoulder retractor. Identified the biceps tendon. I performed a biceps tenotomy and tenodesis in the distal aspect using #2 FiberWire to the upper border of the pectoralis major tendon. I followed the biceps up and through superiorly. I removed a remnant of the biceps at the superior aspect of the glenoid. I performed a subscapularis tenotomy. I placed stay sutures in this. I followed the plane between the subscapularis and the capsule. I placed retractors in this layer. I peeled away the capsule from the inferior humeral neck. I made sure to protect the axillary nerve throughout. I used the canal entry guide and intramedullary guide to perform my cut. I made this at the junction of the humeral articular surface and the capsular layer. We removed any osteophytes. I released the capsule circumferentially, and then I made my humeral head cut. I then turned my attention to the glenoid. I removed the labrum circumferentially as well as released a small amount of the triceps off the inferior glenoid. There was minimal labral hypertrophy. I inserted the guidewire center-center at the glenoid and then slightly anteriorly as well as superiorly. I used a center peg reamer for the SR glenoid with medium post. Thoroughly irrigated the wound. I impacted the SR glenoid baseplate with medium post. This achieved good solid bite. Impactor was removed. I then inserted two screws superiorly and inferior, a superior one for the base of the coracoid and an inferior one for the scapula body. These both achieved quite good bites so it appeared they were both 30 mm long. I then again irrigated and impacted a 36 mm eccentric glenosphere with the eccentric part inferiorly. I then delivered the humerus anteriorly. I broached up to a size 15 humeral body. I trialed a standard reverse body with 0 and +3 mm polys. A +6 mm was too thick and +3 mm was just right. Conjoined tendon was on appropriate tension. Full range of motion. No obvious levering or notching or impingement. I then made drill holes for subscapularis repair and passed the sutures around the final implant. The neck cut was made at 20 degrees retroversion, and the implant was assembled on the back table and impacted at 20 degrees retroversion with the sutures around the back side of the implant. The final polyethylene was then impacted into place after the body was thoroughly cleaned. This was stable and solid, and final reduction was achieved. Implant appeared stable and solid with no obvious impingement or levering and full range of motion. Subscapularis was then repaired using the drill holes in transosseous technique with the sutures around the back side of the implant. This was a stable, solid, and strong repair. I then removed the retractors and thoroughly irrigated the soft tissues. Deltopectoral interval was closed with #1 Vicryl suture, subcutaneous tissues with 2-0 Vicryl sutures, and skin with 3-0 Monocryl. 20 mL or Exparel mixed with 20 mL of 0.25% Marcaine with 20 mL of normal saline was then mixed up and filled in around the incision site. Skin was cleaned with a wet and dry dressing followed by the application of Prineo wound dressing, and patient's upper extremity was placed in a sling with the arm on the body. The patient was woken up from general anesthetic, transferred off the operating room table, and taken to the postanesthetic are unit in stable condition. All sponge, needle, and instrument counts were correct. Estimated blood loss 100 mL. No complications. PLAN: Patient is to be admitted inpatient and discharged home tomorrow morning as long as the pain is well controlled. Follow up in the office in two weeks time. Keep the Prineo dressing in place, and they can shower over top of that and trim the edges as needed. The certified pathology assistant, Adam Aldridge, was instrumental in achieving visualization and holding retractors during the case. POLLY
--- NOTE | 2020-02-01 12:46 | DS ---
DATE OF ADMISSION: 01/19/2020 DATE OF DISCHARGE: 01/20/2020 ATTENDING PHYSICIAN: Dr. Garcia ADMITTING DIAGNOSIS: Osteoarthritis, right shoulder. OTHER DIAGNOSES: 1. Elevated cholesterol. 2. Hypertension. 3. Osteoarthritis. 4. Seasonal allergies. 5. Arrhythmia. 6. Lcx-Rqjfwxe-qlcuapeyt diabetes. 7. Raynaud's phenomenon. 8. Hypothyroidism. DISCHARGE DIAGNOSIS: Osteoarthritis, right shoulder, status post right reverse shoulder replacement. OPERATION PERFORMED: Right reverse shoulder replacement. HISTORY: This is a 74-year-old female patient with progressively worsening right shoulder pain and stiffness. She failed to improve with conservative management. She was admitted for elective shoulder replacement on the right side. HOSPITAL COURSE: Patient was admitted on day of surgery and underwent a right reverse shoulder replacement by Dr. Garcia, which was uneventful. She did well in the postoperative period, and her hospital course was so complication. She was up with physical therapy per the protocol, and her pain was controlled. On day of discharge she was doing well, nonweightbearing on her right upper extremity. She will use the sling as directed. She will followup with Dr. Garcia in 7-10 days for surgical followup. She will resume her preoperative medications and diet. She was given instructions to include, but not limited to, wound monitoring, activity limitations, use of the sling. Please refer to the medical record for further details. POLLY
== END 2020-01-20 10:22 | disposition home or self-care (01) | DRG 483 ==
LOC: M OR 08:16 → M MS5PR 14:15
PROVIDERS: ADMIT Orthopaedic Surgery Sports Medicine; ATTEND Orthopaedic Surgery Sports Medicine
PROC: 0RRJ00Z Replacement of Right Shoulder Joint with Reverse Ball and Socket Synthetic Substitute, Open Approach (ICD-10-PCS; principal; 2020-01-19 09:30)
DX: M19.011 Primary osteoarthritis, right shoulder (principal); Z79.899 Other long term (current) drug therapy; Z79.01 Long term (current) use of anticoagulants; E11.9 Type 2 diabetes mellitus without complications; I48.91 Unspecified atrial fibrillation; I10 Essential (primary) hypertension; E78.5 Hyperlipidemia, unspecified; Z96.661 Presence of right artificial ankle joint; Z96.662 Presence of left artificial ankle joint; E03.9 Hypothyroidism, unspecified

== ENCOUNTER → 2020-02-24 | Outpatient (CLI) | payer MEDICARE, BC, OTHER ==
[~2020-02-24] MED LIST changes: -ACETAMINOPHEN 500 MG TAB PO ONE; -CelecoXIB 400 MG CAP PO ONE; +GLUCTAB6 PO; -LIDOCAINE 1% MDV 20ML VIAL SQ PRN; -LR 1,000 ML IV ONE; +PERC5TAB12 PO; -PERCOCET 5MG/325MG TAB PO ONE; +TRAV04OPD OU; -ceFAZolin SOD 2 GM in IV 1 EA IV ONE
--- NOTE | 2020-02-24 14:18 | REP ---
INDICATION: PAIN IN LOWER LEG, SPRAIN OF LEFT FOOT AND ANKLE. COMPARISON: Comparison left knee radiographs November 02, 2008.. TECHNIQUE: Four views. FINDINGS: Four views of the left calf demonstrate an acute fracture of the distal fibular diametaphyseal zone nondisplaced. No acute tibial fracture is seen. Left knee arthroplasty components are again seen in good position. There is an old healed fibular diaphyseal fracture at midshaft level. Vascular calcification is noted. There is Achilles and plantar calcaneal spurring and some mild midfoot spurring is seen. IMPRESSION: There is an acute obliquely oriented fracture through the distal fibular diametaphyseal region nondisplaced. Ankle and midfoot osteoarthritis. Heel spurs. Vascular calcification. Old healed midshaft fracture of the fibula and left knee arthroplasty are incidental findings.. <Electronically signed by Salvador Ruiz > 02/24/20 [id number]
--- NOTE | 2020-02-24 14:19 | REP ---
INDICATION: PAIN IN LOWER LEG, SPRAIN OF LEFT FOOT AND ANKLE. COMPARISON: No prior ankle radiographs.. TECHNIQUE: Four views. FINDINGS: Four views of the left ankle demonstrate an obliquely oriented nondisplaced fracture through the distal fibular diametaphyseal zone. Ankle mortise is intact. No tibial fracture is seen. There is tibiotalar spurring however. An accessory ossicle is seen in adjacent to the medial malleolar tip. This is well corticated. There is mild midfoot osteoarthritic spurring. Fairly prominent Achilles and plantar calcaneal spurs are noted and there is some vascular calcification. IMPRESSION: Vascular calcification. Heel spurs. Acute nondisplaced oblique fracture distal fibular diametaphyseal zone. Ankle and midfoot osteoarthritis. <Electronically signed by Salvador Ruiz > 02/24/20 [id number]
--- NOTE | 2020-02-24 14:20 | REP ---
INDICATION: PAIN IN LOWER LEG, SPRAIN OF LEFT FOOT AND ANKLE. COMPARISON: No comparison foot radiographs.. TECHNIQUE: Four views FINDINGS: Four views of the left foot demonstrate the obliquely oriented acute fracture of the distal fibular diametaphyseal zone seen on the ankle series.. No foot fracture or subluxation is seen. There is mild hallux valgus and moderate osteoarthritis at the 1st MTP joint. There is mild midfoot osteoarthritic spurring. Plantar and Achilles calcaneal spurs are noted.. No foot fracture is seen. No evidence of opaque foreign body.. IMPRESSION: No acute foot fracture seen. Distal fibular fracture with associated swelling noted. Midfoot osteoarthritic spurring, heel spurring, and 1st MTP joint osteoarthritis is noted incidentally.. <Electronically signed by Salvador Ruiz > 02/24/20 [id number]
== END ==
LOC: M WUC 10:59
PROVIDERS: ATTEND Physician Assistant
DX: M77.32 Calcaneal spur, left foot (principal); S82.434A Nondisplaced oblique fracture of shaft of right fibula, initial encounter for closed fracture; M79.662 Pain in left lower leg; S93.402A Sprain of unspecified ligament of left ankle, initial encounter; S93.602A Unspecified sprain of left foot, initial encounter; X58.XXXA Exposure to other specified factors, initial encounter; Y92.89 Other specified places as the place of occurrence of the external cause; Y93.89 Activity, other specified; Y99.8 Other external cause status

== ENCOUNTER 2020-03-19 16:39 | Emergency (ER) | payer MEDICARE, BC, OTHER ==
[~2020-03-19] VITALS: Ht 170.2 cm; Wt 74.3 kg
--- NOTE | 2020-03-19 18:15 | REPVR ---
PROCEDURE INFORMATION: Exam: XR Right Shoulder Exam date and time: 03/19/2020 5:29 PM Age: 74 years old Clinical indication: Pain; Shoulder; Right; Additional info: Pain, tearing after reaching. R/O hardware failure TECHNIQUE: Imaging protocol: XR Right shoulder. Views: 2 or more views. COMPARISON: CT-Shoulder WITHOUT CONTRAST 12/04/2019 2:16 PM FINDINGS: Bones/joints: There is a total right shoulder prosthesis in alignment. There is no evidence of dislocation. A very large osteophyte from the inferior aspect of the right acromion is noted. The glenoid prosthesis appears to be well anchored with screws. The humeral prosthesis appears intact with no evidence of loosening. There is no evidence of fracture. Soft tissues: Normal. IMPRESSION: No evidence of fracture or loosening. Electronically signed by: Luciano Domingo On 03/19/2020 18:15:50 PM
[2020-03-19 18:41] VITALS: BP 174/80
== END 2020-03-19 18:50 | disposition home or self-care (01) ==
LOC: M ED 16:39
DX: S46.001A Unspecified injury of muscle(s) and tendon(s) of the rotator cuff of right shoulder, initial encounter (principal); X50.0XXA Overexertion from strenuous movement or load, initial encounter; Y92.000 Kitchen of unspecified non-institutional (private) residence as the place of occurrence of the external cause; Y93.9 Activity, unspecified; M25.711 Osteophyte, right shoulder; E11.9 Type 2 diabetes mellitus without complications; I48.91 Unspecified atrial fibrillation; I10 Essential (primary) hypertension; E78.5 Hyperlipidemia, unspecified; E03.9 Hypothyroidism, unspecified; Z79.01 Long term (current) use of anticoagulants; Z79.84 Long term (current) use of oral hypoglycemic drugs; Z79.899 Other long term (current) drug therapy

== ENCOUNTER → 2020-04-25 | Outpatient (CLI) | payer MEDICARE, BC, OTHER ==
--- NOTE | 2020-04-25 10:58 | REP ---
INDICATION: RT SHOULDER FX. Assess acromion fracture and component position. Nondisplaced fracture of acromion process. COMPARISON: Comparison CT study of the right shoulders from December 04, 2019, this was preoperative. Comparison radiographs are from March 19, 2020.. TECHNIQUE: Helical scanning is acquired and 3 mm axial images re-formatted. Coronal and sagittal MPR images are generated. FINDINGS: A prosthetic right glenohumeral articulation is noted in place. This appears to be in good position. No humeral or glenoid fracture is apparent. There is some spray artifact. There is evidence of periosteal reaction consistent with healing of a fracture through the acromion process. The fracture is in an oblique coronal plane. It is posterior to the acromioclavicular articulation. It is nondisplaced. It was not apparent previously. Median sternotomy wires are noted. There are degenerative disc changes in the thoracic spine. No bony destructive lesion is seen. Visualized right lung dia are clear. There are granulomatous lymph node calcifications in the right hilus and mediastinum. No periarticular fluid collection is appreciated. IMPRESSION: Healing fracture through the acromion process, nondisplaced. Status post glenohumeral prosthesis, a components of which appear well aligned. There is some inferior chromium process spurring unchanged. <Electronically signed by Salvador Ruiz > 04/25/20 [id number]
== END ==
LOC: M RAD 09:21
PROVIDERS: ATTEND Orthopaedic Surgery Sports Medicine
DX: S42.124D Nondisplaced fracture of acromial process, right shoulder, subsequent encounter for fracture with routine healing (principal)

== ENCOUNTER → 2020-07-18 | Outpatient (REF) | payer MEDICARE, BC, OTHER ==
[2020-07-19 13:14] LABS: BASO % 0.4 % (0.0-1.0); EOS # 0.1 10^3/uL (0.0-0.5); EOS % 0.9 % (0.0-3.0); HEMATOCRIT 38.8 % (36.0-47.0); HEMOGLOBIN 12.4 g/dl (12.0-15.5); LYMPH # 1.4 10^3/uL (1.5-5.0); LYMPH % 14.7 % (24.0-44.0); MEAN CORPUSCULAR VOLUME 90.7 fl (80.0-96.0); MONO # 0.9 10^3/uL (0.0-0.8); MONO % 10.2 % (2.0-8.0); NEUTROPHILS # 6.7 10^3/uL (1.5-8.5); NEUTROPHILS % 73.4 % (36.0-66.0); PLATELET COUNT, AUTOMATED 309 10^3/uL (150-450); RED BLOOD COUNT 4.28 10^6/uL (4.00-5.40); WHITE BLOOD COUNT 9.2 10^3/uL (4.0-10.0)
[2020-07-19 13:39] LABS: ERYTHROCYTE SEDIMENTATION RATE 29 mm/hr (0-30)
[2020-07-19 13:47] LABS: ALBUMIN 4.1 GM/DL (3.2-5.2); ALT/SGPT 16 U/L (12-78); BILIRUBIN,TOTAL 0.6 MG/DL (0.2-1.0); BLOOD UREA NITROGEN 24 MG/DL (7-18); C REACTIVE PROTEIN QUANTITATIV 3.22 MG/DL (0.00-0.30); CALCIUM LEVEL 9.9 MG/DL (8.8-10.2); CARBON DIOXIDE LEVEL 28 MEQ/L (21-32); CHLORIDE LEVEL 101 MEQ/L (98-107); CREATININE FOR GFR 1.38 MG/DL (0.55-1.30); GLOMERULAR FILTRATION RATE 39.6 (>39); GLUCOSE, FASTING 84 MG/DL (70-100); POTASSIUM SERUM 4.8 MEQ/L (3.5-5.1); RHEUMATOID FACTOR QUANT < 10.0 IU/ML (<15.0); SODIUM LEVEL 137 MEQ/L (136-145); TOTAL PROTEIN 7.1 GM/DL (6.4-8.2)
[2020-07-20 15:07] LABS: ANTINUCLEAR ANTIBODIES DIRECT Negative (Negative); Lyme Disease IgG/IgM Antibodie <0.91 ISR (0.00-0.90); Lyme Disease IgM Ab Quantitati <0.80 index (0.00-0.79)
== END ==
LOC: M LABDRWAD 12:25
PROVIDERS: ATTEND Nurse Practitioner Family
DX: M12.9 Arthropathy, unspecified (principal)

== ENCOUNTER → 2020-07-28 | Outpatient (REF) | payer MEDICARE, OTHER ==
[2020-07-28 14:30] LABS: ALBUMIN 3.9 GM/DL (3.2-5.2); BILIRUBIN,TOTAL 0.5 MG/DL (0.2-1.0); CALCIUM LEVEL 10.9 MG/DL (8.8-10.2); CHOLESTEROL RISK RATIO 3.035 (<5); CREATININE FOR GFR 1.47 MG/DL (0.55-1.30); FREE T4 1.28 NG/DL (0.76-1.46); GLOMERULAR FILTRATION RATE 36.8 (>39); POTASSIUM SERUM 4.5 MEQ/L (3.5-5.1); THYROID STIMULATING HORMONE 1.66 uIU/ML (0.358-3.740)
[2020-07-28 14:41] LABS: CREATININE, URINE 53.6 MG/DL; MALB URINE SIEMENS < 5.0 MG/L; MAU/CREAT RATIO 9.3 MCG/MG (0.0-30.0)
[2020-07-28 15:42] LABS: HEMOGLOBIN A1c 6.1 %
== END ==
LOC: M LABDRWAD 12:13
PROVIDERS: ATTEND Nurse Practitioner Family
DX: E11.40 Type 2 diabetes mellitus with diabetic neuropathy, unspecified (principal); E03.9 Hypothyroidism, unspecified; E78.5 Hyperlipidemia, unspecified

== ENCOUNTER → 2020-08-02 | Outpatient (CLI) | payer MEDICARE, OTHER ==
--- NOTE | 2020-08-02 10:01 | REP ---
INDICATION: F/U. COMPARISON: 03/19/2020. TECHNIQUE: Three views right shoulder. FINDINGS: Total right shoulder prosthesis is unchanged in appearance. There is no fracture or dislocation. There is no abnormal lucency in the bone adjacent to the metallic prosthetic components. Once again there is moderate narrowing of the acromioclavicular joint with significant subacromial spurring, unchanged. There is a moderate degree of smooth periosteal new bone formation at the superior and inferior aspects of the acromion. IMPRESSION: Stable appearance of total right shoulder prosthesis. There is a moderate degree of smooth periosteal new bone formation at the superior and inferior aspects of the acromion. <Electronically signed by Evan David > 08/02/20 [id number]
== END ==
LOC: M SOG 09:02
PROVIDERS: ATTEND Orthopaedic Surgery Sports Medicine
DX: Z47.89 Encounter for other orthopedic aftercare (principal)

== ENCOUNTER → 2020-11-02 | Outpatient (CLI) | payer MEDICARE, BC ==
--- NOTE | 2020-11-02 10:13 | REP ---
INDICATION: POLYMYALGIA RHEUMATICA COMPARISON: None. TECHNIQUE: AP, lateral, bilateral oblique views right and left hand. FINDINGS: Right hand demonstrates advanced diffuse osteoarthritic degenerative changes including periarticular sclerosis, joint space narrowing, marginal spurring and periarticular calcifications primarily involving the interphalangeal joints as well as the 1st and 2nd metacarpophalangeal joints. Extensive degenerative changes at the 1st and 2nd carpometacarpal joints also noted including subchondral sclerosis/heterogeneity and cystic changes, cortical irregularities, remodeling and chronic subluxation. No significant periarticular erosive changes or significant periarticular swelling. No evidence for acute fracture or dislocation. Left hand demonstrates advanced diffuse osteoarthritic degenerative changes including periarticular sclerosis, joint space narrowing, marginal spurring and periarticular calcifications primarily involving the interphalangeal joints as well as the 1st and 2nd metacarpophalangeal joints. Extensive degenerative changes at the 1st and 2nd carpometacarpal joints also noted including subchondral sclerosis/heterogeneity and cystic changes, cortical irregularities, remodeling and chronic subluxation. No significant periarticular erosive changes or significant periarticular swelling. No evidence for acute fracture or dislocation. IMPRESSION: Advanced osteoarthritic degenerative changes noted bilaterally (right greater than left) findings may over shadow underlying subtle inflammatory arthritic changes. <Electronically signed by Trell Hoang > 11/02/20 [id number]
--- NOTE | 2020-11-02 10:28 | REP ---
INDICATION: POLYMYALGIA RHEUMATICA COMPARISON: None. TECHNIQUE: AP, lateral, bilateral oblique views right and left foot. FINDINGS: Right foot demonstrates moderate arthritic. There is periarticular sclerosis with joint space narrowing and marginal spurring at the 1st metatarsophalangeal joint. Moderate arthritic changes are also identified throughout the interphalangeal joints including periarticular sclerosis, joint space narrowing and marginal spurring. Mid and hindfoot demonstrate age-related changes. No evidence for acute fracture or dislocation. Left foot demonstrates moderate arthritic changes at the 1st metatarsophalangeal joint including periarticular sclerosis with joint space narrowing and marginal spurring. Mild/moderate degenerative changes to the interphalangeal joints appears somewhat less pronounced than the contralateral right foot. Presumed old healed fracture at the base of the 5th metatarsal bone. Mid and hindfoot demonstrate age-related changes. IMPRESSION: Moderate arthritic changes noted (right greater than left). <Electronically signed by Trell Hoang > 11/02/20 [id number]
== END ==
LOC: M PLAIMG 08:25
PROVIDERS: ATTEND Internal Medicine Rheumatology
DX: M35.3 Polymyalgia rheumatica (principal); M19.041 Primary osteoarthritis, right hand; M19.042 Primary osteoarthritis, left hand; M19.071 Primary osteoarthritis, right ankle and foot; M19.072 Primary osteoarthritis, left ankle and foot

== ENCOUNTER → 2020-11-02 | Outpatient (CLI) | payer MEDICARE, BC ==
--- NOTE | 2020-11-02 10:06 | DEXAMM ---
INDICATION: M89.9 DISORDER OF BONE. COMPARISON: 11/04/2018 as well as other prior exams. TECHNIQUE: Bone density was measured using dual-energy x-ray absorptiometry (DEXA). FINDINGS: AP SPINE L1-L4 BMD 1.310 g/cm2 Young Adult T-Score 0.9 Age Matched Z-Score 2.7. LT FEMUR, TOTAL BMD 1.068 g/cm2 Young Adult T-Score 0.5 Age Matched Z-Score 2.3. LT NECK BMD 0.975 g/cm2 Young Adult T-Score -0.5 Age Matched Z-Score 1.6. RT FEMUR, TOTAL BMD 1.033 g/cm2 Young Adult T-Score 0.2 Age Matched Z-Score 2.0. RT NECK BMD 0.947 g/cm2 Young Adult T-Score -0.7 Age Matched Z-Score 1.4. IMPRESSION: There is normal bone density of the spine. There is normal bone density of the left hip. There is normal bone density of the right hip. The density of the spine has increased 3.3% since the initial exam on 06/02/2003. The density of the spine decreased 0.2% since most recent exam on 11/04/2018. The density of the left hip has decreased 5.7% since initial exam on 09/07/2008. The density of the left hip has decreased 0.7% since most recent exam on 11/04/2018. The density of the right hip has decreased 6.4% since the initial exam on 09/07/2008. The density of the right hip has decreased 0.7% since the most recent exam on 11/04/2018. FOLLOW-UP: Recommendation for the next bone density exam: 5 years. <Electronically signed by Evan David > 11/02/20 1002
== END ==
LOC: M WHC 07:56
PROVIDERS: ATTEND Nurse Practitioner Family
DX: M89.9 Disorder of bone, unspecified (principal); M85.88 Other specified disorders of bone density and structure, other site; M35.3 Polymyalgia rheumatica; M19.041 Primary osteoarthritis, right hand; M19.042 Primary osteoarthritis, left hand; M19.071 Primary osteoarthritis, right ankle and foot; M19.072 Primary osteoarthritis, left ankle and foot

== ENCOUNTER → 2020-11-09 | Outpatient (CLI) | payer MEDICARE, BC, OTHER ==
[2020-11-09 15:41] LABS: BASO % 0.5 % (0.0-1.0); EOS % 0.1 % (0.0-3.0); HEMATOCRIT 39.1 % (36.0-47.0); HEMOGLOBIN 12.2 g/dl (12.0-15.5); LYMPH # 0.8 10^3/uL (1.5-5.0); LYMPH % 8.6 % (24.0-44.0); MEAN CORPUSCULAR HGB CONC 31.2 g/dl (32.0-36.5); MEAN CORPUSCULAR VOLUME 89.7 fl (80.0-96.0); MONO # 0.4 10^3/uL (0.0-0.8); MONO % 3.9 % (2.0-8.0); NEUTROPHILS # 7.7 10^3/uL (1.5-8.5); NEUTROPHILS % 86.1 % (36.0-66.0); PLATELET COUNT, AUTOMATED 260 10^3/uL (150-450); RED BLOOD COUNT 4.36 10^6/uL (4.00-5.40); WHITE BLOOD COUNT 8.9 10^3/uL (4.0-10.0)
[2020-11-09 16:04] LABS: ERYTHROCYTE SEDIMENTATION RATE 4 mm/hr (0-30)
[2020-11-09 16:06] LABS: ALBUMIN 3.9 GM/DL (3.2-5.2); BILIRUBIN,TOTAL 0.6 MG/DL (0.2-1.0); C REACTIVE PROTEIN QUANTITATIV 0.59 MG/DL (0.00-0.30); CREATININE FOR GFR 1.19 MG/DL (0.55-1.30); GLOMERULAR FILTRATION RATE 46.8 (>39); POTASSIUM SERUM 4.3 MEQ/L (3.5-5.1); TOTAL PROTEIN 6.7 GM/DL (6.4-8.2)
== END ==
LOC: M PLALAB 13:43
PROVIDERS: ATTEND Internal Medicine Rheumatology
DX: M35.3 Polymyalgia rheumatica (principal)
CPT/HCPCS: 36415; 80053; 85025; 85652; 86140; G0463

== ENCOUNTER → 2020-12-13 | Outpatient (REF) | payer OTHER, MEDICARE ==
[2020-12-13 12:31] LABS: BASO # 0.1 10^3/uL (0.0-0.2); BASO % 0.9 % (0.0-1.0); EOS # 0.1 10^3/uL (0.0-0.5); EOS % 1.4 % (0.0-3.0); HEMATOCRIT 40.2 % (36.0-47.0); HEMOGLOBIN 12.7 g/dl (12.0-15.5); LYMPH # 1.5 10^3/uL (1.5-5.0); LYMPH % 22.8 % (24.0-44.0); MEAN CORPUSCULAR HEMOGLOBIN 28.7 pg (27.0-33.0); MEAN CORPUSCULAR HGB CONC 31.6 g/dl (32.0-36.5); MONO # 0.7 10^3/uL (0.0-0.8); MONO % 10.4 % (2.0-8.0); NEUTROPHILS # 4.3 10^3/uL (1.5-8.5); NEUTROPHILS % 64.2 % (36.0-66.0); PLATELET COUNT, AUTOMATED 245 10^3/uL (150-450); RED BLOOD COUNT 4.42 10^6/uL (4.00-5.40); WHITE BLOOD COUNT 6.7 10^3/uL (4.0-10.0)
[2020-12-13 12:59] LABS: ERYTHROCYTE SEDIMENTATION RATE 5 mm/hr (0-30)
[2020-12-13 13:12] LABS: ALBUMIN 3.9 GM/DL (3.2-5.2); BILIRUBIN,TOTAL 0.4 MG/DL (0.2-1.0); C REACTIVE PROTEIN QUANTITATIV 0.3 MG/DL (0.00-0.30); CALCIUM LEVEL 9.8 MG/DL (8.8-10.2); CREATININE FOR GFR 1.23 MG/DL (0.55-1.30); GLOMERULAR FILTRATION RATE 45.1 (>39); POTASSIUM SERUM 4.2 MEQ/L (3.5-5.1); TOTAL PROTEIN 6.3 GM/DL (6.4-8.2)
== END ==
LOC: M SFHCADAM 09:07
PROVIDERS: ATTEND Internal Medicine Rheumatology
DX: M35.3 Polymyalgia rheumatica (principal)

== ENCOUNTER → 2020-12-14 | Outpatient (REF) | payer MEDICARE, OTHER ==
[2020-12-14 13:38] LABS: HEMOGLOBIN A1c 6.3 %
[2020-12-14 13:47] LABS: BILIRUBIN,TOTAL 0.4 MG/DL (0.2-1.0); CALCIUM LEVEL 9.9 MG/DL (8.8-10.2); CHOLESTEROL RISK RATIO 3.571 (<5); CREATININE FOR GFR 1.35 MG/DL (0.55-1.30); GLOMERULAR FILTRATION RATE 40.5 (>39); POTASSIUM SERUM 4.7 MEQ/L (3.5-5.1); TOTAL PROTEIN 6.7 GM/DL (6.4-8.2)
== END ==
LOC: M LABDRWAD 12:45
PROVIDERS: ATTEND Nurse Practitioner Family
DX: E78.5 Hyperlipidemia, unspecified (principal); E11.40 Type 2 diabetes mellitus with diabetic neuropathy, unspecified

== ENCOUNTER → 2021-01-12 | Outpatient (CLI) | payer MEDICARE, BC, OTHER ==
--- NOTE | 2021-01-12 14:09 | REPMRS ---
Patient History The patient states she has not had a clinical breast exam in over a year. Family history of colorectal cancer at age 50 or over in brother. Patient states no breast complaints today. Patient has signed MRS History Sheet. Digital Woman Screen Mammo: January 12, 2021 - Exam #: [id number] Bilateral CC and MLO view(s) were taken. Technologist: Gretel Holden, Technologist Prior study comparison: November 04, 2018, bilateral digital mammo screening bilat, performed at [facility] [employer] [facility]. October 16, 2017, bilateral digital mammo screening bilat, performed at [facility]. FINDINGS: The breast tissue is heterogeneously dense. This may lower the sensitivity of mammography. Screening. Digital screening (2D) mammography was performed bilaterally in the CC and MLO projections. Additionally, breast tomosynthesis (3D mammography) was performed bilaterally in the CC and MLO projections. Todays exam was compared to the prior exam/exams. By history, the patient has no complaints of a palpable breast abnormality or other significant breast complaints. The breasts are unchanged in size and shape.Once again, dense heterogenous fibroglandular elements are seen bilaterally in a stable appearing pattern but to such a degree that the sensitivity of the mammogram in detecting cancer is decreased. There are no eliud-soft tissue densities or spiculated masses. There is no internal architectural distortion. Once again, stable benign appearing calcifications are seen.There are no suspicious eliud-calcific clusters. Skin thickening or nipple retraction is not present. IMPRESSION: BI-RADS Category 2- Benign Findings. There is no evidence of malignant alteration of the breasts. Followup examination recommended in one year. The Volpara volumetric breast density category is C, the breasts are heterogenously dense which may obscure small masses. This mammogram was read with the assistance of [employer],an FDA approved computer aided detection system for mammography. The lifetime Tyrer-Cuzick score is 2.4 % Negative x-ray reports should not delay surgical consultation if a dominant or clinically suspicious mass is present. Not all breast cancers can be identified by mammography. Therefore, we recommend that you continue to perform regular breast self-examination and physical examination and then promptly contact your physician of any concerns or changes. Adenosis and dense breasts may obscure an underlying neoplasm. Assessment: BI-RADS/ACR category 2 mammogram. Benign Findings. Recommendation Routine screening mammogram of both breasts in 1 year. Electronically Signed By: Ariel Munoz DO 01/12/21 1734
== END ==
LOC: M WHC 13:27
PROVIDERS: ATTEND Nurse Practitioner Family
DX: Z12.31 Encounter for screening mammogram for malignant neoplasm of breast (principal)

== ENCOUNTER → 2021-04-12 | Outpatient (REF) | payer MEDICARE, OTHER ==
[2021-04-12 18:05] LABS: BASO % 0.6 % (0.0-1.0); EOS % 0.4 % (0.0-3.0); HEMATOCRIT 39.8 % (36.0-47.0); HEMOGLOBIN 12.8 g/dl (12.0-15.5); LYMPH # 0.9 10^3/uL (1.5-5.0); LYMPH % 13.4 % (24.0-44.0); MEAN CORPUSCULAR HEMOGLOBIN 29.7 pg (27.0-33.0); MEAN CORPUSCULAR HGB CONC 32.2 g/dl (32.0-36.5); MEAN CORPUSCULAR VOLUME 92.3 fl (80.0-96.0); MONO # 0.6 10^3/uL (0.0-0.8); NEUTROPHILS # 5.4 10^3/uL (1.5-8.5); NEUTROPHILS % 77.2 % (36.0-66.0); PLATELET COUNT, AUTOMATED 263 10^3/uL (150-450); RED BLOOD COUNT 4.31 10^6/uL (4.00-5.40)
[2021-04-12 18:26] LABS: BILIRUBIN,TOTAL 0.5 MG/DL (0.2-1.0); C REACTIVE PROTEIN QUANTITATIV 0.4 MG/DL (0.00-0.30); CREATININE FOR GFR 1.21 MG/DL (0.55-1.30); GLOMERULAR FILTRATION RATE 45.9 (>39); POTASSIUM SERUM 3.6 MEQ/L (3.5-5.1); TOTAL PROTEIN 6.8 GM/DL (6.4-8.2)
[2021-04-12 18:35] LABS: ERYTHROCYTE SEDIMENTATION RATE 8 mm/hr (0-30)
== END ==
LOC: M SFHCRHEU 15:08
PROVIDERS: ATTEND Internal Medicine Rheumatology
DX: M35.3 Polymyalgia rheumatica (principal); H04.123 Dry eye syndrome of bilateral lacrimal glands; I73.00 Raynaud's syndrome without gangrene; M89.49 Other hypertrophic osteoarthropathy, multiple sites; Z79.52 Long term (current) use of systemic steroids
CPT/HCPCS: 36415; 80053; 85025; 85652; 86140; G0463

== ENCOUNTER → 2021-08-03 | Outpatient (REF) | payer MEDICARE, OTHER ==
[2021-08-03 12:49] LABS: BASO # 0.1 10^3/uL (0.0-0.2); EOS # 0.1 10^3/uL (0.0-0.5); EOS % 1.5 % (0.0-3.0); HEMATOCRIT 40.6 % (36.0-47.0); HEMOGLOBIN 13.1 g/dl (12.0-15.5); LYMPH # 1.1 10^3/uL (1.5-5.0); LYMPH % 22.6 % (24.0-44.0); MEAN CORPUSCULAR HEMOGLOBIN 29.7 pg (27.0-33.0); MEAN CORPUSCULAR HGB CONC 32.3 g/dl (32.0-36.5); MEAN CORPUSCULAR VOLUME 92.1 fl (80.0-96.0); MONO # 0.6 10^3/uL (0.0-0.8); MONO % 11.9 % (2.0-8.0); NEUTROPHILS % 62.6 % (36.0-66.0); PLATELET COUNT, AUTOMATED 244 10^3/uL (150-450); RED BLOOD COUNT 4.41 10^6/uL (4.00-5.40); WHITE BLOOD COUNT 4.8 10^3/uL (4.0-10.0)
[2021-08-03 13:16] LABS: ALBUMIN 3.8 GM/DL (3.2-5.2); BILIRUBIN,TOTAL 0.6 MG/DL (0.2-1.0); C REACTIVE PROTEIN QUANTITATIV 0.31 MG/DL (0.00-0.30); CREATININE FOR GFR 1.22 MG/DL (0.55-1.30); GLOMERULAR FILTRATION RATE 45.5 (>39); POTASSIUM SERUM 4.5 MEQ/L (3.5-5.1); TOTAL PROTEIN 6.4 GM/DL (6.4-8.2)
[2021-08-03 13:37] LABS: ERYTHROCYTE SEDIMENTATION RATE 8 mm/hr (0-30)
== END ==
LOC: M LABDRWAD 11:42
PROVIDERS: ATTEND Internal Medicine Rheumatology
DX: M35.3 Polymyalgia rheumatica (principal); Z79.52 Long term (current) use of systemic steroids; I73.00 Raynaud's syndrome without gangrene; M89.49 Other hypertrophic osteoarthropathy, multiple sites; H04.123 Dry eye syndrome of bilateral lacrimal glands

== ENCOUNTER → 2021-11-06 | Outpatient (CLI) | payer MEDICARE, OTHER ==
[~2021-11-06] MED LIST changes: -GLUCTAB6 PO; +GLUCTAB7 PO
[2021-11-06 11:10] LABS: BASO # 0.1 10^3/uL (0.0-0.2); BASO % 0.8 % (0.0-1.0); EOS # 0.1 10^3/uL (0.0-0.5); EOS % 1.5 % (0.0-3.0); HEMATOCRIT 42.5 % (36.0-47.0); HEMOGLOBIN 13.4 g/dl (12.0-15.5); MEAN CORPUSCULAR HEMOGLOBIN 28.7 pg (27.0-33.0); MEAN CORPUSCULAR HGB CONC 31.5 g/dl (32.0-36.5); MONO # 0.6 10^3/uL (0.0-0.8); MONO % 9.3 % (2.0-8.0); NEUTROPHILS # 4.3 10^3/uL (1.5-8.5); NEUTROPHILS % 71.7 % (36.0-66.0); PLATELET COUNT, AUTOMATED 244 10^3/uL (150-450); RED BLOOD COUNT 4.67 10^6/uL (4.00-5.40)
[2021-11-06 11:42] LABS: ERYTHROCYTE SEDIMENTATION RATE 7 mm/hr (0-30)
[2021-11-06 15:17] LABS: ALBUMIN 3.9 GM/DL (3.2-5.2); BILIRUBIN,TOTAL 0.7 MG/DL (0.2-1.0); C REACTIVE PROTEIN QUANTITATIV 0.64 MG/DL (0.00-0.30); CALCIUM LEVEL 9.6 MG/DL (8.8-10.2); CREATININE FOR GFR 1.38 MG/DL (0.55-1.30); GLOMERULAR FILTRATION RATE 39.4 (>39); POTASSIUM SERUM 4.4 MEQ/L (3.5-5.1); TOTAL PROTEIN 6.6 GM/DL (6.4-8.2)
== END ==
LOC: M PLALAB 08:30
PROVIDERS: ATTEND Internal Medicine Rheumatology
DX: M35.3 Polymyalgia rheumatica (principal); H04.123 Dry eye syndrome of bilateral lacrimal glands; I73.00 Raynaud's syndrome without gangrene; M89.49 Other hypertrophic osteoarthropathy, multiple sites; Z79.52 Long term (current) use of systemic steroids

== ENCOUNTER → 2021-12-19 | Outpatient (CLI) | payer MEDICARE, OTHER ==
[2021-12-19 11:10] LABS: HEMOGLOBIN A1c 5.9 %
[2021-12-19 11:33] LABS: ALBUMIN 4.1 GM/DL (3.2-5.2); BILIRUBIN,TOTAL 0.6 MG/DL (0.2-1.0); CALCIUM LEVEL 10.2 MG/DL (8.8-10.2); CHOLESTEROL RISK RATIO 4.577 (<5); CREATININE FOR GFR 1.4 MG/DL (0.55-1.30); FREE T4 1.07 NG/DL (0.76-1.46); GLOMERULAR FILTRATION RATE 38.7 (>39); POTASSIUM SERUM 4.6 MEQ/L (3.5-5.1); THYROID STIMULATING HORMONE 3.81 uIU/ML (0.358-3.740); TOTAL PROTEIN 6.9 GM/DL (6.4-8.2)
== END ==
LOC: M PLALAB 08:23
PROVIDERS: ATTEND Nurse Practitioner Family
DX: E11.40 Type 2 diabetes mellitus with diabetic neuropathy, unspecified (principal); E03.9 Hypothyroidism, unspecified; E78.5 Hyperlipidemia, unspecified

== ENCOUNTER → 2021-12-27 | Outpatient (CLI) | payer MEDICARE, OTHER | LOC: M RAD 12:23 | PROVIDERS: ATTEND Nurse Practitioner Family | DX: M16.12 Unilateral primary osteoarthritis, left hip (principal) ==

== ENCOUNTER → 2022-04-26 | Outpatient (CLI) | payer MEDICARE, OTHER ==
[2022-04-26 11:41] LABS: BASO % 0.8 % (0.0-1.0); EOS # 0.2 10^3/uL (0.0-0.5); EOS % 2.9 % (0.0-3.0); HEMATOCRIT 40.4 % (36.0-47.0); HEMOGLOBIN 12.8 g/dl (12.0-15.5); LYMPH # 1.1 10^3/uL (1.5-5.0); LYMPH % 21.1 % (24.0-44.0); MEAN CORPUSCULAR HEMOGLOBIN 29.3 pg (27.0-33.0); MEAN CORPUSCULAR HGB CONC 31.7 g/dl (32.0-36.5); MEAN CORPUSCULAR VOLUME 92.4 fl (80.0-96.0); MONO # 0.7 10^3/uL (0.0-0.8); MONO % 14.3 % (2.0-8.0); NEUTROPHILS # 3.1 10^3/uL (1.5-8.5); NEUTROPHILS % 60.7 % (36.0-66.0); PLATELET COUNT, AUTOMATED 249 10^3/uL (150-450); RED BLOOD COUNT 4.37 10^6/uL (4.00-5.40); WHITE BLOOD COUNT 5.1 10^3/uL (4.0-10.0)
[2022-04-26 12:13] LABS: C REACTIVE PROTEIN QUANTITATIV < 0.40 MG/DL (<1.0)
[2022-04-26 12:15] LABS: ALBUMIN 3.8 G/DL (3.2-5.2); ALKALINE PHOSPHATASE 83 U/L (46-116); ALT/SGPT 15 U/L (7.0-40); AST/SGOT 19 U/L (<34); BILIRUBIN,TOTAL 0.7 MG/DL (0.3-1.2); BLOOD UREA NITROGEN 40 MG/DL (9-23); CALCIUM LEVEL 9.7 MG/DL (8.3-10.6); CARBON DIOXIDE LEVEL 28 MMOL/L (20-31); CHLORIDE LEVEL 105 MMOL/L (98-107); CREATININE FOR GFR 1.34 MG/DL (0.55-1.30); GLOMERULAR FILTRATION RATE 40.7 (>39); GLUCOSE, FASTING 105 MG/DL (74-106); POTASSIUM SERUM 4.3 MMOL/L (3.5-5.1); SODIUM LEVEL 141 MMOL/L (136-145); TOTAL PROTEIN 6.3 G/DL (5.7-8.2)
[2022-04-26 12:21] LABS: ERYTHROCYTE SEDIMENTATION RATE 14 mm/hr (0-30)
== END ==
LOC: M PLALAB 08:18
PROVIDERS: ATTEND Internal Medicine Rheumatology
DX: M35.3 Polymyalgia rheumatica (principal); H04.123 Dry eye syndrome of bilateral lacrimal glands; Z79.52 Long term (current) use of systemic steroids; I30.0 Acute nonspecific idiopathic pericarditis; M89.49 Other hypertrophic osteoarthropathy, multiple sites

== ENCOUNTER → 2022-04-26 | Outpatient (CLI) | payer MEDICARE, OTHER ==
[2022-04-26 11:41] LABS: HEMATOCRIT 39.9 % (36.0-47.0); HEMOGLOBIN 12.6 g/dl (12.0-15.5); MEAN CORPUSCULAR HGB CONC 31.6 g/dl (32.0-36.5); MEAN CORPUSCULAR VOLUME 91.9 fl (80.0-96.0); PLATELET COUNT, AUTOMATED 241 10^3/uL (150-450); RED BLOOD COUNT 4.34 10^6/uL (4.00-5.40); WHITE BLOOD COUNT 5.3 10^3/uL (4.0-10.0)
[2022-04-26 12:14] LABS: CHOLESTEROL RISK RATIO 4.64 (<5); HDL CHOLESTEROL 40.5 MG/DL (>40); LDL CHOLESTEROL 109.7 MG/DL (<100)
== END ==
LOC: M PLALAB 08:20
PROVIDERS: ATTEND Nurse Practitioner Family
DX: E78.00 Pure hypercholesterolemia, unspecified (principal); I48.20 Chronic atrial fibrillation, unspecified

== ENCOUNTER → 2022-08-02 | Outpatient (CLI) | payer MEDICARE, OTHER, BC ==
[2022-08-02 13:34] LABS: CALCIUM LEVEL 9.9 MG/DL (8.3-10.6); CREATININE FOR GFR 1.22 MG/DL (0.55-1.30); GLOMERULAR FILTRATION RATE 45.4 (>39); POTASSIUM SERUM 4.5 MMOL/L (3.5-5.1)
[2022-08-02 13:36] LABS: FREE T4 1.29 NG/DL (0.89-1.76); THYROID STIMULATING HORMONE 2.486 uIU/ML (0.55-4.78)
[2022-08-02 13:53] LABS: CREATININE, URINE 85.7 MG/DL; MALB URINE SIEMENS < 3.0 MG/L; MAU/CREAT RATIO 3.5 MCG/MG (0.0-30.0)
[2022-08-02 13:57] LABS: HEMOGLOBIN A1c 5.9 % (4.0-6.0)
== END ==
LOC: M PLALAB 11:08
PROVIDERS: ATTEND Nurse Practitioner Family
DX: E11.40 Type 2 diabetes mellitus with diabetic neuropathy, unspecified (principal); E03.9 Hypothyroidism, unspecified

== ENCOUNTER → 2022-08-16 | Outpatient (CLI) | payer MEDICARE, OTHER, BC | LOC: M SOG 08:01 | PROVIDERS: ATTEND Orthopaedic Surgery | DX: M19.072 Primary osteoarthritis, left ankle and foot (principal); M77.32 Calcaneal spur, left foot ==

== ENCOUNTER → 2022-11-08 | Outpatient (CLI) | payer MEDICARE, BC, OTHER ==
[2022-11-08 10:53] LABS: BASO # 0.1 10^3/uL (0.0-0.2); BASO % 0.9 % (0.0-1.0); EOS # 0.1 10^3/uL (0.0-0.5); EOS % 1.8 % (0.0-3.0); HEMATOCRIT 40.5 % (36.0-47.0); HEMOGLOBIN 12.9 g/dl (12.0-15.5); LYMPH # 1.1 10^3/uL (1.5-5.0); LYMPH % 18.8 % (24.0-44.0); MEAN CORPUSCULAR HEMOGLOBIN 29.3 pg (27.0-33.0); MEAN CORPUSCULAR HGB CONC 31.9 g/dl (32.0-36.5); MONO # 0.7 10^3/uL (0.0-0.8); MONO % 11.7 % (2.0-8.0); NEUTROPHILS # 3.8 10^3/uL (1.5-8.5); NEUTROPHILS % 66.6 % (36.0-66.0); PLATELET COUNT, AUTOMATED 251 10^3/uL (150-450); WHITE BLOOD COUNT 5.6 10^3/uL (4.0-10.0)
[2022-11-08 11:21] LABS: ERYTHROCYTE SEDIMENTATION RATE 5 mm/hr (0-30)
[2022-11-08 11:34] LABS: C REACTIVE PROTEIN QUANTITATIV < 0.40 MG/DL (<1.0)
[2022-11-08 11:35] LABS: ALBUMIN 3.7 G/DL (3.2-5.2); ALKALINE PHOSPHATASE 79 U/L (46-116); ALT/SGPT 15 U/L (7.0-40); AST/SGOT < 8 U/L (<34); BILIRUBIN,TOTAL 0.5 MG/DL (0.3-1.2); BLOOD UREA NITROGEN 34 MG/DL (9-23); CALCIUM LEVEL 9.5 MG/DL (8.3-10.6); CARBON DIOXIDE LEVEL 27 MMOL/L (20-31); CHLORIDE LEVEL 105 MMOL/L (98-107); CREATININE FOR GFR 1.22 MG/DL (0.55-1.30); GLOMERULAR FILTRATION RATE 45.3 (>39); GLUCOSE, FASTING 94 MG/DL (74-106); POTASSIUM SERUM 4.8 MMOL/L (3.5-5.1); SODIUM LEVEL 140 MMOL/L (136-145); TOTAL PROTEIN 6.2 G/DL (5.7-8.2)
== END ==
LOC: M PLALAB 08:43
PROVIDERS: ATTEND Internal Medicine Rheumatology
DX: M35.3 Polymyalgia rheumatica (principal); H04.123 Dry eye syndrome of bilateral lacrimal glands; I73.00 Raynaud's syndrome without gangrene; M89.49 Other hypertrophic osteoarthropathy, multiple sites; Z79.52 Long term (current) use of systemic steroids

== ENCOUNTER → 2023-01-29 | Outpatient (CLI) | payer MEDICARE, BC, OTHER ==
[2023-01-29 13:54] LABS: HEMOGLOBIN A1c 5.8 % (4.0-6.0)
[2023-01-29 13:56] LABS: ALBUMIN 3.8 G/DL (3.2-5.2); BILIRUBIN,TOTAL 0.7 MG/DL (0.3-1.2); CALCIUM LEVEL 9.4 MG/DL (8.3-10.6); CHOLESTEROL RISK RATIO 3.97 (<5); CREATININE FOR GFR 1.16 MG/DL (0.55-1.30); HDL CHOLESTEROL 53.3 MG/DL (>40); LDL CHOLESTEROL 130.1 MG/DL (<100); NON-HDL-C 158.7 MG/DL; POTASSIUM SERUM 4.4 MMOL/L (3.5-5.1); TOTAL PROTEIN 6.3 G/DL (5.7-8.2)
== END ==
LOC: M PLALAB 10:24
PROVIDERS: ATTEND Nurse Practitioner Family
DX: Z00.00 Encounter for general adult medical examination without abnormal findings (principal); E11.40 Type 2 diabetes mellitus with diabetic neuropathy, unspecified; E78.5 Hyperlipidemia, unspecified

== ENCOUNTER → 2023-07-31 | Outpatient (CLI) | payer MEDICARE, BC ==
[2023-07-31 12:21] LABS: HEMOGLOBIN A1c 5.9 % (4.0-6.0)
[2023-07-31 12:38] LABS: CREATININE, URINE 123.3 MG/DL; MAU/CREAT RATIO 4.8 MCG/MG (0.0-30.0)
[2023-07-31 12:41] LABS: BILIRUBIN,TOTAL 0.6 MG/DL (0.3-1.2); CALCIUM LEVEL 9.9 MG/DL (8.3-10.6); CREATININE FOR GFR 1.14 MG/DL (0.55-1.30); FREE T4 1.29 NG/DL (0.89-1.76); GLOMERULAR FILTRATION RATE 48.9 (>39); POTASSIUM SERUM 4.5 MMOL/L (3.5-5.1); TOTAL PROTEIN 6.6 G/DL (5.7-8.2)
[2023-07-31 12:42] LABS: THYROID STIMULATING HORMONE 3.674 uIU/ML (0.55-4.78)
== END ==
LOC: M PLALAB 08:49
PROVIDERS: ATTEND Nurse Practitioner Family
DX: E11.40 Type 2 diabetes mellitus with diabetic neuropathy, unspecified (principal)

== ENCOUNTER 2023-08-05 19:01 | Emergency (ER) | payer MEDICARE, BC ==
[~2023-08-05] VITALS: Ht 170.2 cm; Wt 71.6 kg
[2023-08-05 19:01] VITALS: TEMP 97.6; O2SAT 99
[2023-08-05 20:39] LABS: BASO % 0.4 % (0.0-1.0); EOS # 0.1 10^3/uL (0.0-0.5); EOS % 2.1 % (0.0-3.0); HEMATOCRIT 40.5 % (36.0-47.0); HEMOGLOBIN 13.7 g/dl (12.0-15.5); LYMPH # 1.2 10^3/uL (1.5-5.0); LYMPH % 20.4 % (24.0-44.0); MEAN CORPUSCULAR HEMOGLOBIN 29.7 pg (27.0-33.0); MEAN CORPUSCULAR HGB CONC 33.8 g/dl (32.0-36.5); MEAN CORPUSCULAR VOLUME 87.7 fl (80.0-96.0); MONO # 0.7 10^3/uL (0.0-0.8); MONO % 11.4 % (2.0-8.0); NEUTROPHILS # 3.7 10^3/uL (1.5-8.5); NEUTROPHILS % 65.3 % (36.0-66.0); PLATELET COUNT, AUTOMATED 285 10^3/uL (150-450); RED BLOOD COUNT 4.62 10^6/uL (4.00-5.40); WHITE BLOOD COUNT 5.7 10^3/uL (4.0-10.0)
[2023-08-05] MEDS: NS 1,000 ML IV ONE (20:47)
[2023-08-05] MEDS: ACETAMINOPHEN TAB 650MG DOSE (2X325MG) PO ONE (20:47)
[2023-08-05 21:10] LABS: CALCIUM LEVEL 9.8 MG/DL (8.3-10.6); CREATININE FOR GFR 1.01 MG/DL (0.55-1.30); GLOMERULAR FILTRATION RATE 56.3 (>39); POTASSIUM SERUM 4.6 MMOL/L (3.5-5.1)
[2023-08-05] MEDS ORDERED: MIRA3350 PO (22:04)
[2023-08-05] MEDS ORDERED: COLA100C5 PO (22:04)
[2023-08-05 22:10] VITALS: BP 157/89
== END 2023-08-05 22:13 | disposition home or self-care (01) ==
LOC: M ED 19:01
DX: M54.50 Low back pain, unspecified (principal); K59.00 Constipation, unspecified; E11.9 Type 2 diabetes mellitus without complications; I10 Essential (primary) hypertension; Z79.01 Long term (current) use of anticoagulants; Z79.811 Long term (current) use of aromatase inhibitors; Z79.4 Long term (current) use of insulin; Z79.899 Other long term (current) drug therapy

== ENCOUNTER → 2023-11-07 | Outpatient (CLI) | payer MEDICARE, BC ==
[~2023-11-07] MED LIST changes: +COLA100C5 PO; +CRAN500C11 PO; -CVS500CA5 PO; +MIRA3350 PO
[2023-11-07 11:37] LABS: BASO % 0.7 % (0.0-1.0); EOS # 0.1 10^3/uL (0.0-0.5); EOS % 2.1 % (0.0-3.0); HEMATOCRIT 40.4 % (36.0-47.0); HEMOGLOBIN 13.2 g/dl (12.0-15.5); LYMPH # 1.2 10^3/uL (1.5-5.0); MEAN CORPUSCULAR HEMOGLOBIN 29.9 pg (27.0-33.0); MEAN CORPUSCULAR HGB CONC 32.7 g/dl (32.0-36.5); MEAN CORPUSCULAR VOLUME 91.4 fl (80.0-96.0); MONO # 0.6 10^3/uL (0.0-0.8); MONO % 9.7 % (2.0-8.0); NEUTROPHILS # 3.9 10^3/uL (1.5-8.5); PLATELET COUNT, AUTOMATED 294 10^3/uL (150-450); RED BLOOD COUNT 4.42 10^6/uL (4.00-5.40); WHITE BLOOD COUNT 5.8 10^3/uL (4.0-10.0)
[2023-11-07 11:48] LABS: ERYTHROCYTE SEDIMENTATION RATE 11 mm/hr (0-30)
[2023-11-07 11:53] LABS: C REACTIVE PROTEIN QUANTITATIV < 0.40 MG/DL (<1.0)
[2023-11-07 11:55] LABS: ALBUMIN 3.9 G/DL (3.2-5.2); ALKALINE PHOSPHATASE 94 U/L (46-116); ALT/SGPT 14 U/L (7.0-40); AST/SGOT < 8 U/L (<34); BILIRUBIN,TOTAL 0.8 MG/DL (0.3-1.2); BLOOD UREA NITROGEN 23 MG/DL (9-23); CARBON DIOXIDE LEVEL 27 MMOL/L (20-31); CHLORIDE LEVEL 106 MMOL/L (98-107); CREATININE FOR GFR 1.23 MG/DL (0.55-1.30); GLOMERULAR FILTRATION RATE 44.7 (>32); GLUCOSE, FASTING 98 MG/DL (74-106); POTASSIUM SERUM 4.1 MMOL/L (3.5-5.1); SODIUM LEVEL 142 MMOL/L (136-145); TOTAL PROTEIN 6.5 G/DL (5.7-8.2)
== END ==
LOC: M PLALAB 07:24
PROVIDERS: ATTEND Internal Medicine Rheumatology
DX: M35.3 Polymyalgia rheumatica (principal); H04.123 Dry eye syndrome of bilateral lacrimal glands; I73.00 Raynaud's syndrome without gangrene; M89.49 Other hypertrophic osteoarthropathy, multiple sites; Z79.52 Long term (current) use of systemic steroids

== ENCOUNTER → 2024-01-31 | Outpatient (CLI) | payer MEDICARE, BC ==
[~2024-01-31] MED LIST changes: -CRAN500C11 PO; +CVS500CA5 PO
[2024-01-31 11:13] LABS: HEMOGLOBIN A1c 5.9 % (4.0-6.0)
== END ==
LOC: M PLALAB 07:35
PROVIDERS: ATTEND Nurse Practitioner Family
DX: E11.40 Type 2 diabetes mellitus with diabetic neuropathy, unspecified (principal)

== ENCOUNTER → 2024-04-08 | Outpatient (CLI) | payer MEDICARE, OTHER ==
[2024-04-08 10:54] LABS: CREATININE FOR GFR 1.31 MG/DL (0.55-1.30); GLOMERULAR FILTRATION RATE 41.6 (>32)
== END ==
LOC: M PLALAB 08:50
PROVIDERS: ATTEND Nurse Practitioner Family
DX: R79.89 Other specified abnormal findings of blood chemistry (principal)

== ENCOUNTER → 2024-04-10 | Outpatient (CLI) | payer MEDICARE, BC ==
[~2024-04-10] MED LIST changes: +ISOVUE-370 76% 100ML VIAL ONE
== END ==
LOC: M PLAIMG 09:01
PROVIDERS: ATTEND Nurse Practitioner Family
DX: R19.02 Left upper quadrant abdominal swelling, mass and lump (principal); J84.10 Pulmonary fibrosis, unspecified; I51.7 Cardiomegaly; K75.3 Granulomatous hepatitis, not elsewhere classified; N28.1 Cyst of kidney, acquired; N20.0 Calculus of kidney; K57.10 Diverticulosis of small intestine without perforation or abscess without bleeding
CPT/HCPCS: 74170; Q9967

== ENCOUNTER → 2024-07-31 | Outpatient (CLI) | payer MEDICARE, BC ==
[~2024-07-31] MED LIST changes: -ISOVUE-370 76% 100ML VIAL ONE
[2024-07-31 11:03] LABS: BASO % 0.8 % (0.0-1.0); EOS # 0.1 10^3/uL (0.0-0.5); EOS % 1.9 % (0.0-3.0); HEMATOCRIT 39.2 % (36.0-47.0); HEMOGLOBIN 12.5 g/dl (12.0-15.5); LYMPH % 18.5 % (24.0-44.0); MEAN CORPUSCULAR HEMOGLOBIN 28.9 pg (27.0-33.0); MEAN CORPUSCULAR HGB CONC 31.9 g/dl (32.0-36.5); MEAN CORPUSCULAR VOLUME 90.5 fl (80.0-96.0); MONO # 0.7 10^3/uL (0.0-0.8); MONO % 12.7 % (2.0-8.0); NEUTROPHILS # 3.4 10^3/uL (1.5-8.5); NEUTROPHILS % 65.7 % (36.0-66.0); PLATELET COUNT, AUTOMATED 245 10^3/uL (150-450); RED BLOOD COUNT 4.33 10^6/uL (4.00-5.40); WHITE BLOOD COUNT 5.1 10^3/uL (4.0-10.0)
[2024-07-31 11:26] LABS: MALB URINE SIEMENS < 3.0 MG/L
[2024-07-31 11:30] LABS: ALBUMIN 3.9 G/DL (3.2-5.2); BILIRUBIN,TOTAL 0.7 MG/DL (0.3-1.2); CALCIUM LEVEL 9.9 MG/DL (8.3-10.6); CREATININE FOR GFR 1.22 MG/DL (0.55-1.30); FREE T4 1.43 NG/DL (0.89-1.76); GLOMERULAR FILTRATION RATE 44.9 (>32); THYROID STIMULATING HORMONE 4.102 uIU/ML (0.55-4.78); TOTAL PROTEIN 6.6 G/DL (5.7-8.2)
== END ==
LOC: M PLALAB 07:33
PROVIDERS: ATTEND Nurse Practitioner Family
DX: E11.40 Type 2 diabetes mellitus with diabetic neuropathy, unspecified (principal); I10 Essential (primary) hypertension; I48.20 Chronic atrial fibrillation, unspecified; E03.9 Hypothyroidism, unspecified

== ENCOUNTER → 2025-02-01 | Outpatient (CLI) | payer MEDICARE, BC ==
[2025-02-01 11:01] LABS: CALCIUM LEVEL 10.0 MG/DL (8.3-10.6); CARBON DIOXIDE LEVEL 29.0 MMOL/L (20-31); CHLORIDE LEVEL 101.0 MMOL/L (98-107); CREATININE FOR GFR 1.38 MG/DL (0.55-1.30); GLOMERULAR FILTRATION RATE 38.5 (>32); POTASSIUM SERUM 4.5 MMOL/L (3.5-5.1); SODIUM LEVEL 140.0 MMOL/L (136-145)
[2025-02-01 11:03] LABS: ESTIMATED AVERAGE GLUCOSE 128.0 MG/DL (60-110)
== END ==
LOC: M PLALAB 08:31
PROVIDERS: ATTEND Nurse Practitioner Family
DX: E11.40 Type 2 diabetes mellitus with diabetic neuropathy, unspecified (principal)